=== PATIENT | male | born 2000 | race Caucasian/White ===

== ENCOUNTER 2019-08-28 13:05 | Emergency (ER) | payer SELFPAY ==
[2019-08-28 13:06] VITALS: BP 119/72; PULSE 68; RESP 18; TEMP 36.7; O2SAT 99; BMI 25.5
[2019-08-28 14:05] LABS: Bacteria 0 SEEN /hpf (None Seen); Mucous, Urine 0 SEEN /hpf (<or=2+); White Blood Cells 0 SEEN /hpf (0-5)
--- NOTE | 2019-08-28 14:05 | ED.VISSUMM ---
- ER Visit Summary Date of Service: 08/28/19 Chief Complaint: Abdominal pain History of Present Illness: The patient is a 18 M who presents with abdominal pain that is been getting worse over the past 3 days. Patient states the pain is worse over the lower abdomen. Patient describes it as aching. Patient states nothing makes it better or worse. Patient states initially he thought it was food poisoning and would go away. Patient admits to nausea and vomiting. Patient states his emesis is stomach contents. Patient admits to watery diarrhea yesterday. Patient denies any dysuria or hematuria. Physical Examination: Vital signs are stable. Patient is afebrile. Patient is in no acute distress. Oral mucosa is pink and moist. Neck is supple. Trachea is midline. There is no JVD. Heart was regular rate and rhythm. Lungs are clear and equal bilaterally. Abdomen is soft. Bowel sounds are normal. There is mild diffuse tenderness. There is no rebound or guarding noted. Cranial nerves II through XII are intact. There are no focal motor or sensory deficits noted. Extremities are intact. There is no calf tenderness or edema. Test Results: CBC and comprehensive metabolic profile were obtained and were essentially within normal limits. Urinalysis does not show any evidence of urinary tract infection. Emergency Department Course and Treatment: Patient was given IV fluids and Zofran here. Patient was feeling slightly better. Patient had no further episodes of vomiting. Patient was given a prescription for Zofran. Patient was instructed to start with a liquid diet and advance to a bland diet and then to a regular diet as he feels better. Patient was instructed to follow-up with his primary care physician in 5 to 7 days. Patient understood and was agreeable with this plan. All questions were answered. Disposition: Discharge home Impression: Nausea vomiting and diarrhea This note was generated with [employer] dictation software. It may contain incorrect words, spelling, and punctuation that were not noted in review of the chart prior to signing ED Disposition - Plan for ED Patient: Disposition: Home or Assisted Living Diagnosis: Nausea, vomiting, and diarrhea Instructions: ED Unknown Causes of Abdominal Pain Male, ED Vomiting and Diarrhea Nonspecific Adult Prescriptions: Ondansetron [Zofran Odt] 4 mg PO Q8H PRN PRN #10 tab PRN Reason: Nausea Prescription Printed Referrals: Shukri Baltazar DO [STAFF PHYSICIAN] - 5-7 Days
[2019-08-28 14:07] LABS: Color, Urine Straw (Yellow); Glucose, Dipstick Normal (Normal); Ketone-Dipstick Negative (Negative); Leukocyte Esterase-Dipstick Negative /ul (Negative); Nitrite-Dipstick Negative (Negative); Occult Blood-Urine Negative /ul (Negative); Protein-Dipstick Negative (Negative); Specific Gravity, Urine 1.015 (1.002-1.030); Urine Bilirubin Dipstick Negative (Negative); Urine Clarity Clear (Clear); Urine Urobilinogen Normal (Normal)
[2019-08-28] MEDS: 0.9% Normal Saline 1,000 ML 1000 ML IV (14:10)
[2019-08-28] MEDS: Ondansetron 4 MG/2 ML Vial IV (14:11)
[2019-08-28 14:13] LABS: Red Blood Cells-Urine 0-5 SEEN /hpf (0-5)
[2019-08-28 14:14] LABS: Squamous Epithelial Cells - UA 0-5 SEEN /hpf (0-5)
[2019-08-28 14:21] LABS: Absolute Lymphocyte Count 1.84 X10^3/uL (0.83-4.51); Absolute Neutrophil Count 3.2 X10^3/uL (2.0-7.7); Basophil# 0.02 X10^3/uL; Basophil% 0.3 % (0-1); Eosinophil# 0.08 X10^3/uL; Eosinophils% 1.4 % (0-5); Lymphocyte # 1.84 X10^3/ul (4.0); Lymphocyte % 31.9 % (19-41); Mean Corp Hgb Conc 33.3 g/dL (32-36); Mean Corpuscular Hgb 28.1 pg (27.0-32.0); Mean Corpuscular Volume 84.4 fL (80-94); Mean Platelet Vol. 9.8 fl (6.2-12.0); Monocyte% 10.4 % (0-10); NRBC Flagged by Analyzer 0 % (0-5); Neutrophil % 55.7 % (47-70); Platelet Count 282 K/mm3 (150-450); RBC Distribution Width CV 13.1 % (11.6-14.6); Red Blood Count 5.33 M/mm3 (4.6-6.2); White Blood Count 5.8 K/mm3 (4.4-11.0)
[2019-08-28 14:33] LABS: ALB/GLOB Ratio 1.4 RATIO (0.9-2.4); AST(SGOT) 16 U/L (15-37); Alanine Aminotransfer ALT/SGPT 23 U/L (16-61); Albumin, Serum 4.4 g/dL (3.2-5.0); Alkaline Phosphatase 62 U/L (45-117); Anion Gap 4 (5-15); BUN 8 mg/dL (7-18); BUN/Creat Ratio 7.8 RATIO (10-20); Calcium,Total 9.3 mg/dL (8.5-10.1); Chloride 107 mmol/L (98-107); Creatinine, Serum 1.02 mg/dL (0.70-1.30); EST Glomerular Filtration Rate 98 mL/min (>60); Est Glom Filt Rate - Afr Amer 119 mL/min (>60); Estimated Creatinine Clearance 138.07 ml/min; Globulin 3.2 g/dL (2.2-4.2); Glucose 90 mg/dL (74-106); Lipase 84 U/L (73-393); Potassium 3.8 mmol/L (3.5-5.1); Protein, Total 7.6 g/dL (6.4-8.2); Sodium Level 137 mmol/L (136-145)
[2019-08-28 15:47] VITALS: BP 132/97; RESP 18
== END 2019-08-28 15:50 | disposition home or self-care (01) ==
PROVIDERS: Emergency Provider Emergency Medicine
DX: R19.7 Diarrhea, unspecified (principal); R11.2 Nausea with vomiting, unspecified
CPT/HCPCS: 80053; 81001; 83690; 85025; 96361; 96374; 99283; J7030; A4216; J2405

== ENCOUNTER 2019-10-02 15:27 | Emergency (ER) | payer SELFPAY ==
[2019-10-02 15:28] VITALS: BP 125/85; PULSE 84; RESP 16; TEMP 36.5; O2SAT 98; BMI 21.4
--- NOTE | 2019-10-02 15:51 | ED.VISSUMM ---
- ER Visit Summary Date of Service: 10/02/19 Chief Complaint: Left foot injury History of Present Illness: The patient is a 19 M who presents with a left foot injury that occurred today. Patient states that he was walking down the steps this morning and stepped on a piece of broken glass. Patient states he thinks he got the glass out of the wound. Patient denies any paresthesias or weakness. Patient states the pain is dull. Patient states the pain is worse with ambulation. Patient states his last tetanus immunization was approximately 1 year ago. Physical Examination: Vital signs are stable. Patient is afebrile. Patient is in no acute distress. Skin is warm and dry. There is an approximately 4 mm linear laceration on the plantar aspect of the left foot over the fifth MTP joint. There is minimal gapping of the wound margins. There is no active bleeding noted. There are no foreign bodies visualized. There is no edema or erythema. There is no discharge or drainage. Sensation was intact to light touch in all digits. Capillary refill was less than 2 seconds in all digits. Test Results: X-rays of the left foot were ordered to rule out possible glass foreign body. Patient refused the x-rays and just wanted to be discharged. Emergency Department Course and Treatment: The wound was cleaned and dressed with a bacitracin dressing. Patient was instructed to keep the wound clean and dry. Patient was instructed to follow-up with his primary care physician in 5 to 7 days. Patient understood and was agreeable with the plan. All questions were answered. Disposition: Discharge home Impression: 1. Left foot laceration This note was generated with [employer] dictation software. It may contain incorrect words, spelling, and punctuation that were not noted in review of the chart prior to signing ED Disposition - Plan for ED Patient: Disposition: Home or Assisted Living Diagnosis: Laceration of left foot excluding toes Instructions: ED Laceration Small or Superficial Not Stitched Referrals: [facility] [GROUP OF PHYSICIANS] - 5-7 Days Job Montgomery MD [NON-STAFF] - 5-7 Days
--- NOTE | 2019-10-02 16:23 | CM.ED ---
Social Work Consult: No Primary Care Physician Informant: Self-Referral Met with patient and patient significant other, Clare in room. Introduced self and clinical social work therapist role. Patient agreeable to meeting with this clinical social work therapist and okay with speaking with Clare present. Clare and patient have been since April 2019. Patient currently works full-time through a [employer] and is hoping to be hired on full-time are current location of employment. Patient noted to not have any insurance. Patient state to have missed the enrollment period with insurance and that someone is helping me. Patient states hope to have insurance in the next few months. Patient confirming to not have a primary care physician and is voicing understanding as to importance of having a primary care doctor. Patient open to receiving list of primary care physicians for patient to set up appointment when patient has insurance as patient is reporting to be unable to afford private pay but to make too much to qualify for Medicaid. Clare also works full-time. Patient states to have history of Depression and denies any active mental health services. Patient denies thoughts/plans/intents of suicide. Patient agreeable to this clinical social work therapist providing patient with list of local mental health resources. Support and active listening provided. Patient states no concerns on returning to community. no further needs identified. Davide IGNACIO, ORLIN
[2019-10-02] MEDS: BACITRACIN 15 GM Tube 1 APPLIC TOPICAL (16:44)
== END 2019-10-02 16:45 | disposition home or self-care (01) ==
LOC: ED 16:00
PROVIDERS: Emergency Provider Emergency Medicine
DX: S91.312A Laceration without foreign body, left foot, initial encounter (principal); W25.XXXA Contact with sharp glass, initial encounter; Y93.01 Activity, walking, marching and hiking; Y92.9 Unspecified place or not applicable; Z72.0 Tobacco use
CPT/HCPCS: 99283

== ENCOUNTER 2019-10-15 20:24 | Emergency (ER) | payer SELFPAY ==
[2019-10-15 20:25] VITALS: BP 137/95; PULSE 98; RESP 14; TEMP 36.4; O2SAT 98; BMI 26.2
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
[2019-10-15] MEDS: Naproxen 500 MG Tablet PO (20:43)
[2019-10-15 20:49] LABS: Red Blood Cells-Urine 0 SEEN /hpf (0-5); Squamous Epithelial Cells - UA 0 SEEN /hpf (0-5)
[2019-10-15 21:04] LABS: Color, Urine Yellow (Yellow); Glucose, Dipstick Normal (Normal); Ketone-Dipstick 5 mg/dl (Negative); Leukocyte Esterase-Dipstick 25 /ul (Negative); Nitrite-Dipstick Negative (Negative); Occult Blood-Urine Negative /ul (Negative); Protein-Dipstick 30 mg/dl (Negative); Urine Bilirubin Dipstick Negative (Negative); Urine Clarity Clear (Clear); Urine Urobilinogen 1 mg/dl (Normal)
[2019-10-15 21:13] LABS: Bacteria RARE /hpf (None Seen); Mucous, Urine 1+ /hpf (<or=2+); White Blood Cells 0-5 SEEN /hpf (0-5)
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
[2019-10-15 22:02] VITALS: BP 119/74; PULSE 63; RESP 18; O2SAT 99
== END 2019-10-15 22:07 | disposition home or self-care (01) ==
PROVIDERS: Emergency Provider Emergency Medicine
DX: N50.812 Left testicular pain (principal); Y09 Assault by unspecified means; N43.3 Hydrocele, unspecified; I86.1 Scrotal varices; F17.200 Nicotine dependence, unspecified, uncomplicated
CPT/HCPCS: 76870; 81001; 93976; 99283

== ENCOUNTER 2019-12-28 01:33 | Emergency (ER) | payer SELFPAY ==
[2019-12-28 01:33] VITALS: BP 127/94; PULSE 95; RESP 16; TEMP 36.8; O2SAT 98; BMI 23.5
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
[2019-12-28 03:00] VITALS: RESP 16
--- NOTE | 2019-12-28 03:20 | RAD_ITS ---
STUDY: X-RAY CHEST REASON FOR EXAM: Male, 19 years old. MENTAL HEALTH CLEARANCE TECHNIQUE: Single AP portable view of the chest. COMPARISON: Prior comparison studies are not available for review at this time. FINDINGS: The lungs are clear and expanded. There is no demonstrated pleural abnormality. Normal size heart. Normal mediastinum and ping. Normal visualized pulmonary arteries. Normal visualized aortic arch and descending thoracic aorta. Normal visualized thoracic spine. Normal visualized ribs, clavicles, and shoulders. There is no demonstrated abnormality of the visualized soft tissue structures of the upper abdomen. RAD/Chest 1 View (Portable) IMPRESSION: No radiographic evidence of acute cardiopulmonary disease. Electronically Signed: Deysi Bates MD at 3:47 EST , Service support ,
[2019-12-28 03:22] LABS: Red Blood Cells-Urine 0 SEEN /hpf (0-5); Squamous Epithelial Cells - UA 0 SEEN /hpf (0-5)
[2019-12-28 03:23] LABS: Absolute Lymphocyte Count 1.57 X10^3/uL (0.83-4.51); Absolute Neutrophil Count 7.7 X10^3/uL (2.0-7.7); Basophil# 0.04 X10^3/uL; Basophil% 0.4 % (0-1); Eosinophil# 0.06 X10^3/uL; Eosinophils% 0.6 % (0-5); Hematocrit 43.7 % (40-54); Hemoglobin 14.6 g/dL (13.0-16.5); Lymphocyte # 1.57 X10^3/ul (4.0); Lymphocyte % 15.4 % (19-41); Mean Corp Hgb Conc 33.4 g/dL (32-36); Mean Corpuscular Volume 86.7 fL (80-94); Mean Platelet Vol. 10.2 fl (6.2-12.0); Monocyte% 7.8 % (0-10); NRBC Flagged by Analyzer 0 % (0-5); Neutrophil # 7.71 X10^3/uL (2.7-7.7); Neutrophil % 75.5 % (47-70); Platelet Count 289 K/mm3 (150-450); RBC Distribution Width CV 12.9 % (11.6-14.6); RBC Distribution Width SD 40.6 fl (35.1-43.9); Red Blood Count 5.04 M/mm3 (4.6-6.2); White Blood Count 10.2 K/mm3 (4.4-11.0)
[2019-12-28 03:40] LABS: Amphetamine Urine VISTA NEGATIVE (<1000 ng/mL); Barbiturate Urine VISTA NEGATIVE (< 200 ng/mL); Benzodiazepine Urine VISTA NEGATIVE (< 200 ng/mL); Cocaine Urine VISTA NEGATIVE (< 300 ng/mL); Ecstacy Urine VISTA NEGATIVE (< 500 ng/mL); Methadone Urine VISTA NEGATIVE (< 300 ng/mL); PCP Urine VISTA NEGATIVE (< 25 ng/mL); THC Urine VISTA POSITIVE (< 50 ng/mL); Vista UDS pH Range 6
[2019-12-28 04:10] VITALS: RESP 18
[2019-12-28 04:11] LABS: Color, Urine Yellow (Yellow); Glucose, Dipstick Normal (Normal); Ketone-Dipstick 5 mg/dl (Negative); Leukocyte Esterase-Dipstick 25 /ul (Negative); Nitrite-Dipstick Negative (Negative); Occult Blood-Urine Negative /ul (Negative); Protein-Dipstick 100 mg/dl (Negative); Specific Gravity, Urine 1.025 (1.002-1.030); Urine Bilirubin Dipstick Negative (Negative); Urine Clarity Clear (Clear); Urine Urobilinogen 1 mg/dl (Normal)
[2019-12-28 04:41] LABS: Calcium Oxalate Crystals Ur 1+ /hpf (<or=2+)
[2019-12-28 04:42] LABS: Bacteria 1+ /hpf (None Seen); Hyaline Cast 0-5 SEEN /lpf (0-5); Mucous, Urine 3+ /hpf (<or=2+); White Blood Cells 0-5 SEEN /hpf (0-5)
[2019-12-28 04:49] LABS: ALB/GLOB Ratio 1.4 RATIO (0.9-2.4); AST(SGOT) 11 U/L (15-37); Alanine Aminotransfer ALT/SGPT 23 U/L (16-61); Albumin, Serum 4.6 g/dL (3.2-5.0); Alkaline Phosphatase 64 U/L (45-117); Anion Gap 4 (5-15); BUN 10 mg/dL (7-18); Chloride 103 mmol/L (98-107); EST Glomerular Filtration Rate 100 mL/min (>60); Est Glom Filt Rate - Afr Amer 121 mL/min (>60); Estimated Creatinine Clearance 139.66 ml/min; Globulin 3.2 g/dL (2.2-4.2); Glucose 94 mg/dL (74-106); Potassium 3.6 mmol/L (3.5-5.1); Protein, Total 7.8 g/dL (6.4-8.2); Sodium Level 137 mmol/L (136-145)
[2019-12-28 05:07] VITALS: RESP 18
[2019-12-28 05:15] LABS: Probe Check PASS; Specimen Processing Control PASS
[2019-12-28 06:50] VITALS: BP 124/67; PULSE 72; RESP 16; O2SAT 96
== END 2019-12-28 06:51 | disposition home or self-care (01) ==
PROVIDERS: Emergency Provider Student in an Organized Health Care Education/Training Program
DX: F32.9 Major depressive disorder, single episode, unspecified (principal); F41.9 Anxiety disorder, unspecified; Z79.899 Other long term (current) drug therapy; F17.200 Nicotine dependence, unspecified, uncomplicated
CPT/HCPCS: 71045; 80053; 80307; 80320; 81001; 85025; 87635; 99282; G0480; U0002

== ENCOUNTER 2022-02-15 17:22 | Emergency (ER) | payer SELFPAY ==
[2022-02-15 17:22] VITALS: BP 151/82; PULSE 78; RESP 16; TEMP 36.8; O2SAT 97; BMI 31.5
--- NOTE | 2022-02-15 17:47 | EDS_ITS ---
HPI History of Present Illness Chief Complaint: General Illness Informant: patient Onset/Context/Timing Onset: Weeks (2) Context: Gradual Onset Timing: Continuous Quality: Lightheaded Location: Generalized Worsened by: Standing Relieved by: Nothing Narrative Narrative: Patient presents with dizziness, headache, cough, sore throat, and rhinorrhea for the past 2 weeks. Patient states he feels lightheaded. Patient states this is worse with standing. Patient states he feels like he is going to pass out whenever he stands up. Patient states nothing seems to help with it. Patient admits to some nausea and vomiting. Patient admits to body aches and muscle aches. Patient denies any chest pain. Patient denies any palpitations. Patient states he has been around a neighbor who was recently diagnosed with COVID and other coworkers who were recently diagnosed with influenza. PFSH PFSH Medical History no medical history Home Medications ondansetron 4 mg disintegrating tablet 4 mg PO Q8H PRN PRN Nausea #10 tabs 02/15/22 [Rx Last Taken Unknown] Allergy/AdvReac Type Severity Reaction Status Date / Time No Known Allergies Allergy Verified 02/15/22 17:25 Family History no significant family his Surgical History no surgical history Social History Smoking Status: Never smoker ROS ROS ED Constitutional Constitutional ED: Reports chills and subjective; Denies fever(s) Eyes Eyes: Denies blurry vision or change in vision ENT ENT ED: Reports rhinorrhea and sore throat Cardiovascular Cardiovascular: Denies chest pain or palpitations Respiratory/Chest Respiratory/Chest: Reports cough and dyspnea Gastrointestinal Gastrointestinal: Reports nausea and vomiting Genitourinary Genitourinary ED: Denies dysuria or hematuria Musculoskeletal Musculoskeletal: Reports arthralgias and myalgias Integumentary Denies abscess or rash Neurologic Neurologic: Reports headache(s); Denies weakness Allergic/Immunologic Allergic/Immunologic ED: Denies mouth swelling or urticaria EXAM Physical Exam Const Vital Signs: 02/15/22 17:22 02/15/22 18:02 Temperature 98.2 F Temperature Source Temporal Pulse Rate 78 Pulse Rate [Lying] 64 Pulse Rate [Sitting (for 1 minute prior to obtaining)] 58 L Respiratory Rate 16 Blood Pressure 151/82 H Blood Pressure [Lying] 130/66 H Blood Pressure [Sitting (for 1 minute prior to obtaining)] 127/90 H Blood Pressure [Standing (for 1 minute prior to obtaining)] 129/87 H Blood Pressure Mean 105 Blood Pressure Mean [Lying] 87 Blood Pressure Mean [Sitting (for 1 minute prior to obtaining)] 102 Blood Pressure Mean [Standing (for 1 minute prior to obtaining)] 101 Pulse Ox 97 Oxygen Delivery Method Room Air Positive well nourished and well developed General Appearance ED: well developed and NAD HEENT Reports moist mucous membranes Neck supple and no JVD Resp normal respiratory effort and clear to auscultation bilaterally Cardio regular rate, regular rhythm and no murmurs GI normal to inspection, nondistended, normoactive bowel sounds and non-tender Palpation: soft Extremity normal to inspection General Extremety ED: Negative for edema or tenderness General Extremity: Negative for edema Neuro oriented x3, CN's II-XII intact bilaterally and no sensory deficits noted Sensorium / Orientation: alert Motor Exam: strength 5/5 throughout Psych mental status grossly normal Skin no rashes or lesions noted MDM MDM MDM Narrative Medical decision making narrative: Patient was given IV fluids. Orthostatic vital signs were obtained and were negative. CBC was obtained and was reviewed. There is a mild leukocytosis of 11.3. Comprehensive metabolic profile was also obtained and was reviewed. Chloride was slightly elevated at 109 the remainder was within normal limits. COVID 19 rapid antigen was obtained and was negative. Influenza A and influenza B rapid antigens were obtained and were negative. Portable 1 view chest x-ray was obtained. On my interpretation, lung cantu are clear. There is normal cardiac silhouette. Bony thorax is normal. There is no acute process noted. Radiologist also interpreted the x-ray and agrees. Patient was advised of his findings. Patient was advised that this is most likely a viral illness. Patient was instructed drink plenty of fluids. Patient was instructed to take Tylenol or ibuprofen as needed for any aches or fevers. Patient was given a note for work. Patient was instructed to follow-up with his primary care physician in 5 to 7 days. Patient understood and was agreeable with the plan. All questions were answered. Lab Data Attestation: I reviewed the patient's lab results. Labs: Laboratory Results - last 24 hr 02/15/22 02/15/22 17:35 17:35 WBC 11.3 H RBC 5.32 Hgb 14.9 Hct 45.2 MCV 85.0 MCH 28.0 MCHC 33.0 RDW Std Deviation 39.3 RDW Coeff of Greer 12.7 Plt Count 322 MPV 9.4 Immature Gran % (Auto) 0.400 Neut % (Auto) 74.9 H Lymph % (Auto) 17.8 L [place] % (Auto) 5.8 Eos % (Auto) 0.8 Baso % (Auto) 0.3 Absolute Neuts (auto) 8.5 H Absolute Lymphs (auto) 2.02 Nucleated RBC % 0 Sodium 139 Potassium 3.9 Chloride 109 H Carbon Dioxide 25.0 Anion Gap 5 BUN 9 Creatinine 0.84 Estim Creat Clear Calc 163.47 Est GFR (MDRD) Af Amer 145 Est GFR (MDRD) Non-Af 120 BUN/Creatinine Ratio 10.7 Glucose 103 Calcium 8.8 Total Bilirubin 0.50 AST 16 ALT 35 Alkaline Phosphatase 66 Total Protein 7.5 Albumin 4.0 Globulin 3.5 Albumin/Globulin Ratio 1.1 Radiography Chest X-Ray - ED: 1 View, Read by ED Physician, Read by Radiologist, Normal and No Acute Disease Diagnostic Testing: Clinical Impression(s) from Imaging Studies Chest X-Ray 02/15/22 18:07 IMPRESSION: No acute cardiopulmonary disease or major interval change. Electronically Signed: Leonard Salguero DO at 18:21 EST Reading Location ID and State: [address] [place] [address] Tel [phone], Service support , Discharge Plan Triage Chief Complaint: General Illness ED Provider: Gian Echavarria Dx/Rx/DC Orders Clinical Impression: Viral illness, Nausea and vomiting Instructions: ED Viral Syndrome (Adult) Prescriptions: New ondansetron [ondansetron] 4 MG tablet 4 mg PO Q8H PRN PRN (Reason: Nausea) Qty: 10 0RF Stand Alone Forms: ED Work / School Excuse Primary Care Provider: Care Physician,No Primary Referrals: Gian Carballo MD [Med Staff - Convention Worker] - 5-7 Days Care Physician,No Primary [Primary Care Provider] - Disposition Disposition: Home, Self Care
[2022-02-15] MEDS: 0.9% Normal Saline 1,000 ML 1000 ML IV (18:00)
[2022-02-15] MEDS: Ondansetron 4 MG/2 ML Vial IV (18:00)
[2022-02-15 18:02] VITALS: BP 127/90; BP 129/87; BP 130/66; PULSE 58; PULSE 64
--- NOTE | 2022-02-15 18:07 | RAD_ITS ---
STUDY: X-RAY CHEST REASON FOR EXAM: Male, 21 years old. Cough. TECHNIQUE: Single AP portable view of the chest. COMPARISON: December 28, 2019. FINDINGS: The lungs are clear and expanded. There is no demonstrated pleural abnormality. Normal size heart. Normal mediastinum and ping. Normal visualized pulmonary arteries. Normal visualized aortic arch and descending thoracic aorta. Normal visualized thoracic spine. Normal visualized ribs, clavicles, and shoulders. There is no demonstrated abnormality of the visualized soft tissue structures of the upper abdomen. RAD/Chest 1 View (Portable) IMPRESSION: No acute cardiopulmonary disease or major interval change. Electronically Signed: Leonard Salguero DO at 18:21 [facility] ,
[2022-02-15 18:08] LABS: Absolute Lymphocyte Count 2.02 X10^3/uL (0.83-4.51); Absolute Neutrophil Count 8.5 X10^3/uL (2.0-7.7); Basophil# 0.03 X10^3/uL; Basophil% 0.3 % (0-1); Eosinophil# 0.09 X10^3/uL; Eosinophils% 0.8 % (0-5); Hematocrit 45.2 % (40-54); Hemoglobin 14.9 g/dL (13.0-16.5); Lymphocyte # 2.02 X10^3/ul (0.83-4.51); Lymphocyte % 17.8 % (19-41); Mean Platelet Vol. 9.4 fl (6.2-12.0); Monocyte# 0.66 X10^3/uL; Monocyte% 5.8 % (0-10); NRBC Flagged by Analyzer 0 % (0-5); Neutrophil # 8.49 X10^3/uL (2.7-7.7); Neutrophil % 74.9 % (47-70); Platelet Count 322 K/mm3 (150-450); RBC Distribution Width CV 12.7 % (11.6-14.6); RBC Distribution Width SD 39.3 fl (35.1-43.9); Red Blood Count 5.32 M/mm3 (4.6-6.2); White Blood Count 11.3 K/mm3 (4.4-11.0)
[2022-02-15 18:24] LABS: ALB/GLOB Ratio 1.1 RATIO (0.9-2.4); AST(SGOT) 16 U/L (15-37); Alanine Aminotransfer ALT/SGPT 35 U/L (16-61); Alkaline Phosphatase 66 U/L (45-117); Anion Gap 5 (5-15); BUN 9 mg/dL (7-18); BUN/Creat Ratio 10.7 RATIO (10-20); Calcium,Total 8.8 mg/dL (8.5-10.1); Chloride 109 mmol/L (98-107); Creatinine, Serum 0.84 mg/dL (0.70-1.30); EST Glomerular Filtration Rate 120 mL/min (>60); Est Glom Filt Rate - Afr Amer 145 mL/min (>60); Estimated Creatinine Clearance 163.47 ml/min; Globulin 3.5 g/dL (2.2-4.2); Glucose 103 mg/dL (74-106); Potassium 3.9 mmol/L (3.5-5.1); Protein, Total 7.5 g/dL (6.4-8.2); Sodium Level 139 mmol/L (136-145)
[2022-02-15 19:26] VITALS: BP 131/92; PULSE 72; RESP 22; O2SAT 100
== END 2022-02-15 19:26 | disposition home or self-care (01) ==
PROVIDERS: Emergency Provider Emergency Medicine; Visit Provider Emergency Medicine
DX: B34.9 Viral infection, unspecified (principal); R11.2 Nausea with vomiting, unspecified; M79.10 Myalgia, unspecified site; R51.9 Headache, unspecified; Z20.822 Contact with and (suspected) exposure to COVID-19
CPT/HCPCS: 71045; 80053; 85025; 87428; 96361; 96374; 99284; J7030; A4216; J2405

== ENCOUNTER 2022-02-23 12:01 | Emergency (ER) | payer SELFPAY ==
[2022-02-23 12:01] VITALS: BP 132/89; PULSE 89; RESP 16; TEMP 36.6; O2SAT 99; BMI 31.2
--- NOTE | 2022-02-23 14:05 | CT_ITS ---
STUDY: CT BRAIN WITHOUT CONTRAST REASON FOR EXAM: Male, 21 years old. Dizziness RADIATION DOSAGE (If Supplied By Facility): CTDIvol = ( 47.06 ) mGy, DLP = ( 872.68 ) mGycm TECHNIQUE: Transaxial CT imaging of the brain was performed without administration of intravenous contrast material. Individualized dose optimization techniques were used for this CT. COMPARISON: No relevant priors. FINDINGS: Normal soft tissue structures. Normal calvarium. Normal size ventricles and extra-axial spaces for the patient''s age. Normal white matter tracts of the cerebral hemispheres. Normal basal ganglia and thalami. Normal brainstem. Normal cerebellum. There is no intracranial hemorrhage. There are no findings of an acute ischemic infarction. Mild degree of mucosal thickening along the posterior aspect of the ethmoid sinuses bilaterally. CT/Brain/Head without Contrast IMPRESSION: Normal unenhanced CT scan of the brain. Mild degree of mucosal thickening along the posterior aspect of the ethmoid sinuses bilaterally. Electronically Signed: Bernard Echevarria MD at 14:44 EST ,
[2022-02-23] MEDS: diazePAM 5 MG Tablet 2.5 MG PO (14:15)
[2022-02-23] MEDS: 0.9% Normal Saline 1,000 ML 1000 ML IV (14:15)
[2022-02-23 14:21] LABS: Absolute Lymphocyte Count 1.62 X10^3/uL (0.83-4.51); Absolute Neutrophil Count 4.2 X10^3/uL (2.0-7.7); Basophil# 0.03 X10^3/uL; Basophil% 0.5 % (0-1); Eosinophil# 0.15 X10^3/uL; Eosinophils% 2.3 % (0-5); Hematocrit 45.9 % (40-54); Hemoglobin 15.4 g/dL (13.0-16.5); Lymphocyte # 1.62 X10^3/ul (0.83-4.51); Mean Corp Hgb Conc 33.6 g/dL (32-36); Mean Corpuscular Hgb 28.4 pg (27.0-32.0); Mean Corpuscular Volume 84.7 fL (80-94); Mean Platelet Vol. 9.5 fl (6.2-12.0); Monocyte% 7.7 % (0-10); NRBC Flagged by Analyzer 0 % (0-5); Neutrophil # 4.16 X10^3/uL (2.7-7.7); Neutrophil % 64.2 % (47-70); Platelet Count 318 K/mm3 (150-450); RBC Distribution Width CV 12.7 % (11.6-14.6); RBC Distribution Width SD 39.2 fl (35.1-43.9); Red Blood Count 5.42 M/mm3 (4.6-6.2); White Blood Count 6.5 K/mm3 (4.4-11.0)
[2022-02-23 14:38] LABS: ALB/GLOB Ratio 1.1 RATIO (0.9-2.4); AST(SGOT) 15 U/L (15-37); Alanine Aminotransfer ALT/SGPT 36 U/L (16-61); Albumin, Serum 4.1 g/dL (3.2-5.0); Alkaline Phosphatase 64 U/L (45-117); Anion Gap 7 (5-15); BUN 10 mg/dL (7-18); BUN/Creat Ratio 11.6 RATIO (10-20); Calcium,Total 9.4 mg/dL (8.5-10.1); Chloride 103 mmol/L (98-107); Creatinine, Serum 0.86 mg/dL (0.70-1.30); EST Glomerular Filtration Rate 117 mL/min (>60); Est Glom Filt Rate - Afr Amer 141 mL/min (>60); Estimated Creatinine Clearance 159.67 ml/min; Globulin 3.6 g/dL (2.2-4.2); Glucose 92 mg/dL (74-106); Potassium 4.1 mmol/L (3.5-5.1); Protein, Total 7.7 g/dL (6.4-8.2); Sodium Level 138 mmol/L (136-145)
--- NOTE | 2022-02-23 15:00 | EDS_ITS ---
HPI History of Present Illness Chief Complaint: General Illness Informant: patient Onset/Context/Timing Onset: Weeks (2) Context: Gradual Onset Timing: Continuous Quality: Off balance Location: Generalized Worsened by: Nothing Relieved by: Nothing Narrative Narrative: Patient presents with shortness of breath and dizziness that has been constant for the past 2 weeks. Patient was seen here 1 week ago and had lab work and x- rays done at that time. Patient had IV fluids and was feeling somewhat better. Patient states his symptoms began after he was discharged. Patient states they have been constant. Patient states he feels off balance like he just got off of a roller coaster. Patient states his symptoms are generalized. Patient states nothing makes it worse and nothing makes it better. Patient admits to some subjective fevers and chills. Patient also admits to some blurred vision. Patient admits to some tinnitus. Patient denies any hearing loss however. Patient admits to some shortness of breath and cough with some sputum production. PFSH PFSH Home Medications ondansetron 4 mg disintegrating tablet 4 mg PO Q8H PRN PRN Nausea #10 tabs 02/15/22 [Rx Last Taken Unknown] diazepam 10 mg tablet (Valium) 10 mg PO TID PRN dizziness or vertigo #14 tabs 02/23/22 [Rx Last Taken Unknown] promethazine 25 mg tablet 25 mg PO Q6H PRN PRN Nausea #10 TABLETS 02/23/22 [Rx Last Taken Unknown] Allergy/AdvReac Type Severity Reaction Status Date / Time No Known Allergies Allergy Verified 02/23/22 12:03 Social History Smoking Status: Never smoker ROS ROS ED Constitutional Constitutional ED: Reports chills, fever(s) and subjective Eyes Eyes: Reports blurry vision; Denies diplopia ENT ENT ED: Denies ear pain, rhinorrhea or sore throat Cardiovascular Cardiovascular: Denies chest pain or palpitations Respiratory/Chest Respiratory/Chest: Reports cough, dyspnea and sputum Gastrointestinal Gastrointestinal: Denies nausea or vomiting Genitourinary Genitourinary ED: Denies dysuria or hematuria Musculoskeletal Musculoskeletal: Reports back pain and neck pain Integumentary Denies abscess or rash Neurologic Neurologic: Reports headache(s); Denies weakness Allergic/Immunologic Allergic/Immunologic ED: Denies mouth swelling or urticaria EXAM Physical Exam Const Vital Signs: 02/23/22 12:01 02/23/22 14:08 Temperature 98 F Temperature Source Temporal Pulse Rate 89 Respiratory Rate 16 Respiratory Pattern Normal Blood Pressure 132/89 H Blood Pressure Mean 103 Pulse Ox 99 Oxygen Delivery Method Room Air Positive well nourished and well developed General Appearance ED: well developed HEENT Reports moist mucous membranes Neck supple and no JVD Resp normal respiratory effort and clear to auscultation bilaterally Cardio regular rate, regular rhythm and no murmurs GI normal to inspection, nondistended, normoactive bowel sounds and non-tender Palpation: soft Extremity normal to inspection General Extremety ED: Negative for edema or tenderness General Extremity: Negative for edema Neuro oriented x3, CN's II-XII intact bilaterally and no sensory deficits noted Sensorium / Orientation: alert Motor Exam: strength 5/5 throughout Psych mental status grossly normal Skin no rashes or lesions noted MDM MDM MDM Narrative Medical decision making narrative: Patient was given IV fluids. Patient was given a dose of oral Valium here. Differential diagnosis includes labyrinthitis due to viral upper respiratory infection, viral illness, vertigo, cerebellar infarct or bleed, anemia, and pneumonia. CBC was obtained and was reviewed. This was within normal limits. Comprehensive metabolic profile was obtained and was reviewed. This was all within normal limits. CT scan of the brain was obtained. There is no acute intracranial abnormality. This was interpreted by the radiologist. This was independently reviewed by myself as well. Patient was still having some vertigo type symptoms. Patient was given a dose of meclizine here. Patient was allowed to rest. Patient was having difficulty walking to the bathroom and needed help from his to keep him steady. Patient states that whenever he closes his eyes he still feels like the room is spinning. Patient was given a repeat dose of meclizine here. Patient still feels dizzy but he feels like he is starting to get better. Patient feels unsure if he is able to go home and ambulate without difficulty. states patient has fallen multiple times over the last week and states he is still felt unsteady on his feet. Because of this, I will talk to the hospitalist for observation admission for intractable vertigo. Spouse present and evaluated the patient. Hospitalist states patient is going to go home with Valium and Phenergan. Patient was given prescriptions for these medications. Patient was also given a note for work for today, tomorrow, and Monday. Patient was instructed to drink plenty of fluids. Patient was instructed return if worse in any way. Patient understood and was agreeable with the plan. All questions were answered. Lab Data Attestation: I reviewed the patient's lab results. Labs: Laboratory Results - last 24 hr 02/23/22 02/23/22 13:35 13:35 WBC 6.5 RBC 5.42 Hgb 15.4 Hct 45.9 MCV 84.7 MCH 28.4 MCHC 33.6 RDW Std Deviation 39.2 RDW Coeff of Greer 12.7 Plt Count 318 MPV 9.5 Immature Gran % (Auto) 0.300 Neut % (Auto) 64.2 Lymph % (Auto) 25.0 [place] % (Auto) 7.7 Eos % (Auto) 2.3 Baso % (Auto) 0.5 Absolute Neuts (auto) 4.2 Absolute Lymphs (auto) 1.62 Nucleated RBC % 0 Sodium 138 Potassium 4.1 Chloride 103 Carbon Dioxide 28.0 Anion Gap 7 BUN 10 Creatinine 0.86 Estim Creat Clear Calc 159.67 Est GFR (MDRD) Af Amer 141 Est GFR (MDRD) Non-Af 117 BUN/Creatinine Ratio 11.6 Glucose 92 Calcium 9.4 Total Bilirubin 0.70 AST 15 ALT 36 Alkaline Phosphatase 64 Total Protein 7.7 Albumin 4.1 Globulin 3.6 Albumin/Globulin Ratio 1.1 Radiography Diagnostic Testing: Clinical Impression(s) from Imaging Studies Brain CT 02/23/22 14:05 IMPRESSION: Normal unenhanced CT scan of the brain. Mild degree of mucosal thickening along the posterior aspect of the ethmoid sinuses bilaterally. Electronically Signed: Bernard Echevarria MD at 14:44 EST , Chest X-Ray 02/23/22 15:05 IMPRESSION: Normal x-ray examination of the chest. Electronically Signed: Bernard Echevarria MD at 15:24 EST , Discharge Plan Triage Chief Complaint: General Illness ED Provider: Gian Echavarria Dx/Rx/DC Orders Clinical Impression: Vertigo, Elevated blood pressure reading Instructions: ED Vertigo, Unspecified Prescriptions: New diazepam [Valium] 10 mg tablet 10 mg PO TID PRN (Reason: dizziness or vertigo) Qty: 14 0RF promethazine [promethazine] 25 mg tablet 25 mg PO Q6H PRN PRN (Reason: Nausea) Qty: 10 0RF No Action ondansetron [ondansetron] 4 MG tablet 4 mg PO Q8H PRN PRN (Reason: Nausea) Qty: 10 0RF Stand Alone Forms: ED Work / School Excuse Primary Care Provider: Care Physician,No Primary Referrals: Care Physician,No Primary [Primary Care Provider] - Disposition Disposition: Home, Self Care
--- NOTE | 2022-02-23 15:05 | RAD_ITS ---
STUDY: X-RAY CHEST REASON FOR EXAM: Male, 21 years old. Cough TECHNIQUE: PA and lateral views of the chest. COMPARISON: Comparison is made with prior study dated 02/15/2022. FINDINGS: EKG electrodes are seen. The lungs are clear and expanded. There is no demonstrated pleural abnormality. Normal size heart. Normal mediastinum and ping. Normal visualized pulmonary arteries. Normal visualized aortic arch and descending thoracic aorta. Normal visualized thoracic spine. Normal visualized ribs, clavicles, and shoulders. There is no demonstrated abnormality of the visualized soft tissue structures of the upper abdomen. RAD/Chest PA and Lateral IMPRESSION: Normal x-ray examination of the chest. Electronically Signed: Bernard Echevarria MD at 15:24 EST ,
[2022-02-23] MEDS: Meclizine HCl 25 MG Tablet PO ×2 (15:51→16:59)
== END 2022-02-23 17:42 | disposition home or self-care (01) ==
PROVIDERS: Emergency Provider Emergency Medicine; Visit Provider Emergency Medicine
DX: R42 Dizziness and giddiness (principal); R03.0 Elevated blood-pressure reading, without diagnosis of hypertension
CPT/HCPCS: 70450; 71046; 80053; 85025; 96360; 99285; J7030; A4216

== ENCOUNTER 2025-01-15 21:11 | Emergency (ER) | payer MEDICAID, SELFPAY ==
[2025-01-15 21:11] VITALS: BP 124/74; PULSE 90; RESP 16; TEMP 36.6; O2SAT 99
[2025-01-15 22:54] VITALS: BMI 30.6
--- NOTE | 2025-01-15 23:05 | ED.VIS.LOWEX ---
HPI History of Present Illness HPI Narrative: Patient presents with injury to his right great toe that occurred tonight. Patient states that he was trying to replace the door to his freezer when it fell and landed on his toe. Patient describes the pain as sharp and aching. Patient states it is worse with any pressure. Patient states it is better with elevation. Patient admits to some tingling to his toe. Patient denies any weakness. Patient states his last tetanus was 6 years ago. Patient denies any other injuries. Chief Complaint: Lower Extremity Injury Informant: patient Occured/Mechanism Mechanism/Context: Yes direct blow Onset/Context/Timing Onset: Today Context: Sudden Onset Timing: Continuous Quality of Pain: Sharp and Aching Location: Right great toe Worsened by: Pressure Relieved by: Elevation Associated Symptoms Associated Symptoms: Positive for Parasthesia; Negative for Weakness or Loss of Funtion Narrative Tetanus Immunization: 5-10 years [facility] Medical History (Updated 01/16/25 @ 00:[address] Gian Echavarria DO) Depression Anxiety Hx of fracture of leg Home Medications ?Medication ?Instructions ?Recorded ?Last Taken ?Type NK 01/15/25 Unknown History Allergy/AdvReac Type Severity Reaction Status Date / Time No Known Allergies Allergy Verified 01/15/25 21:12 Surgical History (Updated 01/16/25 @ 00:[address] Gian Echavarria DO) S/P ORIF (open reduction internal fixation) fracture Social History Smoking Status: Never smoker ROS ROS ED Constitutional Constitutional ED: Denies chills or fever(s) Eyes Eyes: Denies blurry vision or change in vision ENT ENT ED: Denies rhinorrhea or sore throat Cardiovascular Cardiovascular: Denies chest pain or palpitations Respiratory/Chest Respiratory/Chest: Denies cough or dyspnea Gastrointestinal Gastrointestinal: Reports nausea; Denies vomiting Genitourinary Genitourinary ED: Denies dysuria or hematuria Musculoskeletal Musculoskeletal: Denies back pain or neck pain Integumentary Denies abscess or rash Neurologic Neurologic: Denies headache(s) or weakness Allergic/Immunologic Allergic/Immunologic ED: Denies mouth swelling or urticaria EXAM Physical Exam Const Vital Signs: 01/15/25 21:11 Temperature 98 F Temperature Source Oral Pulse Rate 90 Respiratory Rate 16 Blood Pressure 124/74 H Blood Pressure Mean 90 Pulse Ox 99 Oxygen Delivery Method Room Air Positive well nourished and well developed Constitutional Narrative: BMI is 30.6. General Appearance ED: well developed and NAD HEENT Reports moist mucous membranes Neck full ROM and supple Extremity Extremity Narrative: There is tenderness of the distal phalanx of the right great toe. There is some mild edema. There is some dried blood along the nail margin. There is no active bleeding noted. Sensation was intact to light touch in all digits. Capillary refill was less than 2 seconds in all digits. Range of motion was limited in all motions of the IP and MP joints of the right great toe secondary to pain. Neuro oriented x3, CN's II-XII intact bilaterally, moves all extremities and no sensory deficits noted Sensorium / Orientation: alert Motor Exam: strength 5/5 throughout Psych mental status grossly normal MDM MDM MDM Narrative Medical decision making narrative: Differential diagnosis includes fracture, sprain, contusion, and laceration. X-rays of the right foot will be obtained to assess for fracture. Radiography Diagnostic Testing: Clinical Impression(s) from Imaging Studies Foot X-Ray 01/15/25 23:12 IMPRESSION: No acute osseous abnormalities. Mild osteoarthrosis. Reading Location: [facility] X-rays of the right foot were obtained. There are 3 views. On my independent interpretation, there is no acute fracture. There is mild soft tissue swelling noted. Radiologist also interpreted the x-rays and agrees. Treatment and Re-Evaluation Narrative: Patient was given a dose of Line [place] here. The wound was cleaned. There is a superficial flap laceration along the medial aspect of the distal phalanx of the right great toe along the nail margin. There is minimal gapping of the wound margins. There does not appear to be amenable to sutures at this time. Bacitracin dressing was applied. Patient was given a postop shoe. Patient was instructed to ice and elevate the right foot. Patient was instructed to take Tylenol or ibuprofen as needed for pain. Patient understood and was agreeable with the plan. All questions were answered. Discharge Plan Triage Chief Complaint: Lower Extremity Injury ED Provider: Gian Echavarria Dx/Rx/DC Orders Clinical Impression: Contusion of great toe of right foot, Elevated blood pressure reading Instructions: ED Crush Injury, Foot/Toe, ED Finger or Toe Contusion Prescriptions: No Action NK Stand Alone Forms: ED Work / School Excuse Primary Care Provider: Care Physician,No Primary Referrals: Care Physician,No Primary [Primary Care Provider, Medical] Print Language: Chinese Disposition Disposition: Home, Self Care
[2025-01-15] MEDS: HYDROcodone Bitartrate/Apap 5/325 Tablet PO (23:08)
--- NOTE | 2025-01-15 23:12 | RAD_ITS ---
PROCEDURE: FOOT MIN 3 VIEWS 01/15/2025 REASON FOR EXAM: INJURY/PAIN TECHNIQUE: Procedure Code: RADFO Modality: DX Procedure: FOOT MIN 3 VIEWS Laterality: FINDINGS: No evidence of acute fracture or dislocation. Mild degenerative changes throughout the foot. Small calcaneal enthesophytes. The soft tissues are unremarkable. RAD/Foot min 3 Views IMPRESSION: No acute osseous abnormalities. Mild osteoarthrosis. Reading Location: [facility]
--- OUTSIDE RECORDS SUMMARY | 2025-01-15 23:39 | XMS RPT_ITS | CCD ---
Author Organization [facility] Inform ion Partnership [facility] Care Team Providers Care Classroom Coordinator Name Role Phone SYL ORTIZ, CECILIA Zapata Attending Unavailable HIRA ORTIZ, BRANDT Mtz Attending Unavail able SHAW BROOKS DO Attending Unavailable Care Physician, No Primary Primary Care Provider Unavailable Care Physician, No Primary Referring Provider Un available Jesus Soliman Attending Provider [phone] Care Physician, No Primary Primary Care Unava ilable Jesus Soliman Attending Unavailable Care Physician, No Primary Referring Unava ilable Jesus Soliman Attending Unavailable Care Physician, No Primary Referring Unava ilable Care Physician, No Primary Primary Care Unava ilable Medications Current Medications Medication Drug Class(es) Dates Sig (Normalized) Sig (Original) cephalexin 500 mg oral capsule (2 sources) Cephalosporin Antibacterial Start: 10-25-2023 End: 11-01-2023 cephalexin 500 mg oral capsule Dose : 500 mg = 1 cap(s), Oral, q12h, X 7 day(s), # 14 cap(s), 0 Refill(s), 11/01/23 4:38:00 PM EDT, 114.7 Start Date: 10/25/23 Stop Date: 11/01/23 Status: Ordered Start: 11-25-2022 End: 12-05-2022 cephalexin 500 mg oral capsu le Dose : 500 mg = 1 cap(s), Oral, q12h, X 10 day(s), # 20 cap(s), 0 Refill(s), 12/05/22 4:41:00 PM EDT, 113.6 Start Date: 11/25/22 Stop Date: 12/05/22 Status: Ordered diazePAM 10 mg oral tablet (3 sources) Benzodiazepine Start: 02-23-2022 take 1 tablet by mouth three times daily as needed for dizziness Diazepam (Valium) 10 mg tablet Active 10 mg PO THREE TIMES A DAY as needed for dizziness or vertigo 14 February 23, 2022 1:00am lidocaine 0.05 mg/mg medicated patch (1 source) Antiarrhythmic, Amide Local Anesthetic Start: 01-14-2023 End: 01-15-2023 lidocaine 5% topical patch Apply 1 patch(es), Transdermal, Daily, # 10 patch(es), 0 Refill(s), 113.6 Start Date: 01/14/23 Stop Date: 01/15/23 Status: Ordered naproxen 500 mg oral tablet (1 source) Nonsteroidal Anti-inflammatory Drug Start: 01-14-2023 End: 01-15-2023 naproxen 500 mg oral tablet Dose : 500 mg = 1 tab(s), Oral, BID, # 14 tab(s), 0 Refill(s), 01/15/23 12:45:00 PM EST Start Date: 01/14/23 Stop Date: 01/15/23 Status: Ordered ondansetron 4 mg disintegrating oral tablet (4 sources) Serotonin-3 Receptor Antagonist Start: 02-15-2022 take 1 tablet by mouth every eight hours as needed for nausea Ondansetron 4 MG tablet Active 4 mg PO EVERY 8 HOURS NEEDED as needed for Nausea 10 February 15, 2022 1:00am promethazine hydrochloride 25 mg oral tablet (3 sources) Phenothiazine Start: 02-23-2022 take 1 tablet by mouth every six hours as needed for nausea Promethazine 25 mg tablet Active 25 mg PO EVERY 6 HOURS NEEDED as needed for Nausea 10 February 23, 2022 1:00am sulfamethoxazole 800 mg / trimethoprim 160 mg oral tablet (2 sources) Dihydrofolate Reductase Inhibitor Antibacterial, Sulfonamide Antimicrobial Start: 10-25-2023 End: 11-01-2023 take 1 tablet by mouth twice daily Bactrim DS 800 mg-160 mg oral tablet Dose = 1 tab(s), Oral, BID, X 7 day(s), # 14 tab(s), 0 Refill(s), 114.7 Start Date: 10/25/23 Stop Date: 11/01/23 Status: Ordered Start: 11-25-2022 End: 12-05-2022 take 1 tablet by mouth twice daily Bactrim DS 800 mg-160 mg oral tablet Dose = 1 tab(s), Oral, BID, X 10 day(s), # 20 tab(s), 0 Refill(s), 113.6 Start Date: 11/25/22 Stop Date: 12/05/22 Status: Ordered Problems Problem Classification Problem Date Documented Da te Episodic/Chronic Administrative/social admission (2 sources) Patient encounter status; Translations: [Encounter for pre-employment examination] 09-26-2024 Episodic Conditions associated with dizziness or vertigo (3 sources) Vertigo; Translations: [Dizziness and giddiness] 02-23-2022 Episodic Nausea and vomiting (8 sources) Nausea, vomiting and diarrhea; Translations: [Nausea with vomiting, unspecified] 08-29-2019 Episodic Nonspecific chest pain (1 source) Chest pain; Translations: [Other chest pain] Onset: 01-14-2023 Episodic Open wounds of extremities (4 sources) Open wound of foot, excluding toe(s); Translations: [Laceration without foreign body, left foot, initial encounter] 10-03-2019 Episodic Other circulatory disease (3 sources) Elevated blood pressure; Translations: [Elevated blood-pressure reading, without diagnosis of hypertension] 02-23-2022 Episodic Other skin disorders (1 source) Ingrowing nail; Translations: [Ingrowing nail] Onset: 11-25-2022 Episodic Skin and subcutaneous tissue infections (1 source) Pilonidal cyst with abscess; Translations: [Pilonidal abscess] Onset: 10-25-2023 Episodic Viral infection (4 sources) Viral disease; Translations: [Viral infection, unspecified] 02-23-2022 Episodic Results Test Name Value Interpretation Reference Range Facility Office Visit Reporton 2024 Office Visit Report [facility] [address] [place] [address] OFFICE VISIT Date of Service: 09/26/24 MR#: [id number] Acct: [id number] Patient: NAVI BROWN Rep #: [id number] : 2000 Provider: HUONG Echevarria Age/Sex: 24/M Location: [facility] Status: Signed Intake Vital Signs 02/23/22 12:01 Height 1.91 m Intake Visit Reasons: PE/NON DOT DRUG/[facility] Chief Complaint: pre employment physical Allergies No Known Allergies Allergy (Verified 09/26/24 14:55) Office Procedures [facility] Billing Sheet Testing Pre-Employment Drug Screen [facility]: Yes Pre-Employment PE: Yes 10/09/24 1050 Date Jesus Abbott Signature: Date (if applicable) CC: Normal [facility] Office Visit Reporton 2024 Office Visit Report [facility] [address] [place] [address] OFFICE VISIT Date of Service: 09/26/24 MR#: [id number] Acct: [id number] Patient: NAVI BROWN Rep #: [id number] : 2000 Provider: HUONG Echevarria Age/Sex: 23/M Location: [facility] Status: Signed Intake Vital Signs 02/23/22 12:01 Height 1.91 m Intake Visit Reasons: PE/NON DOT PHYSICAL/[facility] Chief Complaint: pre employment physical Accompanied by: Self Allergies No Known Allergies Allergy (Verified 09/26/24 14:55) Nurse's Note: Patient here for a pre-employment physical for [employer]. [facility] Social History Smoking Status: Never smoker HPI HPI Chief Complaint: pre employment physical Details: NAVI BROWN, is a 23 M who presents to the office today for pre employment physical Office Procedures Physical Exam Coding PE Coding Pre-employment PE: Yes Coding Level of Care Code No Charge Diagnoses Physical exam, pre-employment Z02.1 Assessment and Plan Assessment and Plan (1) Physical exam, pre-employment: Status: Acute Plan: pre employment physical see accompanying paperwork. 09/26/24 1509 Date Jesus Ramon HUONG Ingramigner Signature: Date (if applicable) CC: Normal [facility] .Auto Diffon 10-25-2023 Basophil, Absolute 0.0 10 3/mcL Normal 0.0-0.2 [facility] Comment on above: Performed By: #### B TAQUERIA RAHMAN, CBC, ADIFF, GFR, ANEU #### [address] [address] Basophils/100 WBC (Bld) 0.5 % Normal 0.0-2.5 [facility] Comment on above: Performed By: #### B TAQUERIA RAHMAN, CBC, ADIFF, GFR, ANEU #### [address] [address] Eosinophil, Absolute 0.0 10 3/mcL Normal 0.0-0.[address] [facility] Comment on above: Performed By: #### B TAQUERIA RAHMAN, CBC, ADIFF, GFR, ANEU #### [address] [address] Eosinophils/100 WBC (Bld) 0.5 % Normal 0.0-7.0 [facility] Comment on above: Performed By: #### B TAQUERIA RAHMAN, CBC, ADIFF, GFR, ANEU #### [address] [address] Lymphocyte, Absolute 1.3 10 3/mcL Normal 0.8-3.[address] [facility] Comment on above: Performed By: #### B TAQUERIA RAHMAN, CBC, ADIFF, GFR, ANEU #### [address] [address] Lymphocytes/100 WBC (Bld) 23.0 % Normal 10.0-50.0 [facility] Comment on above: Performed By: #### B TAQUERIA RAHMAN, CBC, ADIFF, GFR, ANEU #### [address] [address] Monocyte, Absolute 0.9 10 3/mcL Normal 0.2-1.0 [facility] Comment on above: Performed By: #### B JOSIAH, W, CBC, ADIFF, GFR, ANEU #### [address] [address] Monocytes/100 WBC (Bld) 16.5 % High 1.7-13.0 [facility] Comment on above: Performed By: #### B JOSIAH, W, CBC, ADIFF, GFR, ANEU #### [address] [address] Neutrophils/100 WBC (Bld) 59.5 % Normal 37.0-80.0 [facility] Comment on above: Performed By: #### B TAQUERIA RAHMAN, CBC, ADIFF, GFR, ANEU #### [address] [address] .GFRon 10-25-2023 GFR 95 ml/min/1.73sqm Normal [facility] Comment on above: Result Comment: GFR Population mean for , Non- Americans Ages 20-29 = 116 mL/min/1.73 sq.m. Ages 30-39 = 107 mL/min/1.73 sq.m. Ages 40-49 = 99 mL/min/1.73 sq.m. Ages 50-59 = 93 mL/min/1.73 sq.m. Ages 60-69 = 85 mL/min/1.73 sq.m. Ages 70+ = 75 mL/min/1.73 sq.m. Chronic Kidney Disease: Less than 60 mL/min/1.73 square meters End Stage Renal Disease: Less than 15 mL/min/1.73 square meters Performed By: #### B JOSIAH, W, CBC, ADIFF, GFR, ANEU #### [address] [address] GFR Non- 78 ml/min/1.73sqm Normal [facility] Comment on above: Result Comment: GFR Population mean for , Non- Americans Ages 20-29 = 116 mL/min/1.73 sq.m. Ages 30-39 = 107 mL/min/1.73 sq.m. Ages 40-49 = 99 mL/min/1.73 sq.m. Ages 50-59 = 93 mL/min/1.73 sq.m. Ages 60-69 = 85 mL/min/1.73 sq.m. Ages 70+ = 75 mL/min/1.73 sq.m. Chronic Kidney Disease: Less than 60 mL/min/1.73 square meters End Stage Renal Disease: Less than 15 mL/min/1.73 square meters Performed By: #### B TAQUERIA RAHMAN, CBC, ADIFF, GFR, ANEU #### [address] [address] .MDWon 10-25-2023 Monocyte Distribution Width 23.15 High 0.00-20.00 [facility] Comment on above: Result Comment: For adults in ED, MDW>20.0 may be associated with a higher risk of sepsis during the first 12hrs of hospital admission Performed By: #### B TAQUERIA RAHMAN, CBC, ADIFF, GFR, ANEU #### [address] [address] .NEUABSon 10-25-2023 Neutrophil, Absolute 3.4 10 3/mcL Normal 2.9-6.[address] [facility] Comment on above: Performed By: #### B TAQUERIA RAHMAN, CBC, ADIFF, GFR, ANEU #### [address] [address] BMPon 10-25-2023 BUN/Creatinine Ratio 8 ratio Normal 7-27 [facility] Comment on above: Performed By: #### B TAQUERIA RAHMAN, CBC, ADIFF, GFR, ANEU #### [address] [address] Calcium [Mass/Vol] 9.3 mg/dL Normal 8.4-10.2 [facility] Comment on above: Performed By: #### B TAQUERIA RAHMAN, CBC, ADIFF, GFR, ANEU #### [address] [address] Chloride [Moles/Vol] 103 mmol/L Normal 98-107 [facility] Comment on above: Performed By: #### B TAQUERIA RAHMAN, CBC, ADIFF, GFR, ANEU #### [address] [address] CO2 [Moles/Vol] 27 mmol/L Normal 22-29 [facility] Comment on above: Performed By: #### B TAQUERIA RAHMAN, CBC, ADIFF, GFR, ANEU #### [address] [address] Creatinine [Mass/Vol] 1.14 mg/dL Normal 0.70-1.30 [facility] Comment on above: Result Comment: Test ing performed on Siemens Dimension EXL analyzer using a modified kinetic Akhil technique. Performed By: #### B TAQUERIA RAHMAN, CBC, ADIFF, GFR, ANEU #### [address] [address] Electrolyte Balance 9.0 mEq/L Normal 4.0-15.0 [facility] Comment on above: Performed By: #### B TAQUERIA RAHMAN, CBC, ADIFF, GFR, ANEU #### [address] [address] Glucose [Mass/Vol] 98 mg/dL Normal 70-105 [facility] Comment on above: Performed By: #### B TAQUERIA RAHMAN, CBC, ADIFF, GFR, ANEU #### [address] [address] Potassium [Moles/Vol] 3.7 mmol/L Normal 3.5-5.1 [facility] Comment on above: Performed By: #### B TAQUERIA RAHMAN, CBC, ADIFF, GFR, ANEU #### [address] [address] Sodium [Moles/Vol] 139 mmol/L Normal 136-145 [facility] Comment on above: Performed By: #### B TAQUERIA RAHMAN, CBC, ADIFF, GFR, ANEU #### [place] [address] Urea nitrogen [Mass/Vol] 9 mg/dL Normal 7-18 [facility] Comment on above: Performed By: #### B TAQUERIA RAHMAN, CBC, ADIFF, GFR, ANEU #### [place] [address] CBCon 10-25-2023 Erythrocyte distribution width (RBC) [Ratio] 13.7 % Normal 11.5-14.5 [facility] Comment on above: Performed By: #### B TAQUERIA RAHMAN, CBC, ADIFF, GFR, ANEU #### [place] [address] Hematocrit (Bld) [Volume fraction] 43.7 % Normal 42.0-52.0 [facility] Comment on above: Performed By: #### B TAQUERIA RAHMAN, CBC, ADIFF, GFR, ANEU #### [place] [address] Hgb 14.7 G/dL Normal 14.0-18.0 [facility] Comment on above: Performed By: #### B TAQUERIA RAHMAN, CBC, ADIFF, GFR, ANEU #### [place] [address] MCH (RBC) [Entitic mass] 29.0 pg Normal 27.0-31.2 [facility] Comment on above: Performed By: #### B TAQUERIA RAHMAN, CBC, ADIFF, GFR, ANEU #### [place] [address] MCHC 33.5 G/dL Normal 31.8-35.4 [facility] Comment on above: Performed By: #### B TAQUERIA RAHMAN, CBC, ADIFF, GFR, ANEU #### [place] [address] MCV (RBC) [Entitic vol] 86.7 fL Normal 80.0-94.0 [facility] Comment on above: Performed By: #### B TAQUERIA RAHMAN, CBC, ADIFF, GFR, ANEU #### [address] [address] Platelet 243 10 3/mcL Normal 130-400 [facility] Comment on above: Performed By: #### B JOSIAH, W, CBC, ADIFF, GFR, ANEU #### [address] [address] Platelet mean volume (Bld) [Entitic vol] 7.5 fL Normal 7.4-10.4 [facility] Comment on above: Performed By: #### B JOSIAH, TAQUERIA, CBC, ADIFF, GFR, ANEU #### [address] [address] RBC 5.05 10 6/mcL Normal 4.04-6.13 [facility] Comment on above: Performed By: #### B TAQUERIA RAHMAN, CBC, ADIFF, GFR, ANEU #### [address] [address] WBC 5.8 10 3/mcL Normal 4.6-10.8 [facility] Comment on above: Performed By: #### B TAQUERIA RAHMAN, CBC, ADIFF, GFR, ANEU #### [address] [address] [address] ABD/PELVIS W/ IV CONTRAST ONLYon 10-25-2023 CT ABD/PELVIS W/ IV CONTRAST ONLY ORIGINAL EXAMINATION: CT OF THE ABDOMEN AND PELVIS WITH CONTRAST10/25/2023 3:55 pm TECHNIQUE: CT of the abdomen and pelvis was performed with the administration of intravenous contrast. Multiplanar reformatted images are provided for review. Automated exposure control, iterative reconstruction, and/or weight based adjustment of the mA/kV was utilized to reduce the radiation dose to as low as reasonably achievable. COMPARISON: None HISTORY: ORDERING SYSTEM PROVIDED HISTORY: Reason for Exam: pain, FINDINGS: Trace right pleural effusion. No significant left pleural effusion. The lung bases are clear. The heart is normal in size. The liver, right adrenal gland, and pancreas are within normal limits. Borderline enlarged spleen. There is a 1.1 cm left adrenal nodule that measures approximately 46 HU. The gallbladder is unremarkable. Symmetric nephrograms. No hydronephrosis. The ureters are normal in course and caliber. The urinary bladder appears unremarkable. The large and small bowel demonstrate no obstruction. The appendix is normal. Fatty infiltration noted in the proximal colon and distal portions of the small bowel, findings may be seen with chronic inflammatory changes. No free intraperitoneal fluid or gas is identified. The aorta is normal in caliber. No abdominopelvic lymphadenopathy. There is no acute fracture or aggressive osseous lesion. Tiny fat containing umbilical hernia. There is a 1.5 cm nodular density measuring 17 HU mass in the superior gluteal crease eccentric to the left may represent an epidermoid inclusion cyst, there is mild subcutaneous fat stranding seen surrounding this nodule. IMPRESSION: No acute abdominopelvic process. Indeterminate 1.1 cm left adrenal nodule. Consider 12 month follow-up adrenal CT protocol for further evaluation. 1.5 cm nodular density in the superior gluteal crease eccentric to the left with mild surrounding soft tissue stranding. These findings may represent an epidermoid inclusion cyst. A superimposed infectious process cannot be excluded given the adjacent mild fat stranding, suggest to correlate with physical exam. Trace right pleural effusion. Preliminary Report was Dictated by a Resident I have personally reviewed all of the images of this examination and agree with the resident findings and interpretation. Interpreted by: Joseph Goel MD Preliminary Report By: Caitlin Jarquin Electronically signed By Joseph Goel MD Dictated Date: 10/25/2023 4:00:31 PM Prelim Date: 10/25/2023 4:13:51 PM Sign Date: 10/25/2023 8:40:31 PM Ordering Provider: SHAW Winston [facility]ATORYOrdered By: SYSTEM SYSTEM on 10-25-2023 Lactate [Moles/Vol] 1.2 mmol/L Normal 0.4 - 2. 0 mmol/L AO ADM SS Basophils (Bld) [#/Vol] 0.0 103/mcL Normal 0.0 - 0.2 10^3/mcL AO Workflow SS Basophils/100 WBC (Bld) 0.5 % Normal 0.0 - 2.5 % AO Workflow SS Calcium [Mass/Vol] 9.3 mg/dL Normal 8.4 - 10. 2 mg/dL AO ADM SS Chloride [Moles/Vol] 103 mmol/L Normal 98 - 10 7 mmol/L AO ADM SS CO2 [Moles/Vol] 27 mmol/L Normal 22 - 29 mmol/L AO ADM SS Creatinine [Mass/Vol] 1.14 mg/dL Normal 0.70 - 1.30 mg/dL AO ADM SS Comment on above: Interpretive Data: T esting performed on Siemens Dimension EXL analyzer using a modified kinetic Akhil technique. Electrolyte Balance 9.0 mEq/L Normal 4.0 - 15 .0 mEq/L AO ADM SS Eosinophil, Absolute 0.0 103/mcL Normal 0.0 - 0 .4 10^3/mcL AO Workflow SS Eosinophils/100 WBC (Bld) 0.5 % Normal 0.0 - 7.0 % AO Workflow SS Erythrocyte distribution width (RBC) [Ratio] 13.7 % Normal 11.5 - 14.5 % AO Workflow SS GFR/1.73 sq M.predicted among blacks MDRD (S/P/Bld) [Vol rate/Area] 95 ml/min/1.73sqm Invalid Interpretation Code AO Chemistry S Comment on above: Interpretive Data: GFR Population mean for , Non- Americans Ages 20-29 = 116 mL/min/1.73 sq.m. Ages 30-39 = 107 mL/min/1.73 sq.m. Ages 40-49 = 99 mL/min/1.73 sq.m. Ages 50-59 = 93 mL/min/1.73 sq.m. Ages 60-69 = 85 mL/min/1.73 sq.m. Ages 70+ = 75 mL/min/1.73 sq.m. Chronic Kidney Disease: Less than 60 mL/min/1.73 square meters End Stage Renal Disease: Less than 15 mL/min/1.73 square meters GFR/1.73 sq M.predicted among non-blacks MDRD (S/P/Bld) [Vol rate/Area] 78 ml/min/1.73sqm Invalid Interpretation Code AO Chemistry S Comment on above: Interpretive Data: GFR Population mean for , Non- Americans Ages 20-29 = 116 mL/min/1.73 sq.m. Ages 30-39 = 107 mL/min/1.73 sq.m. Ages 40-49 = 99 mL/min/1.73 sq.m. Ages 50-59 = 93 mL/min/1.73 sq.m. Ages 60-69 = 85 mL/min/1.73 sq.m. Ages 70+ = 75 mL/min/1.73 sq.m. Chronic Kidney Disease: Less than 60 mL/min/1.73 square meters End Stage Renal Disease: Less than 15 mL/min/1.73 square meters Glucose [Mass/Vol] 98 mg/dL Normal 70 - 105 mg/dL AO ADM SS Hematocrit (Bld) [Volume fraction] 43.7 % Normal 42.0 - 52.0 % AO Workflow SS Hemoglobin (Bld) [Mass/Vol] 14.7 G/dL Normal 14.0 - 18.0 G/dL AO Workflow SS Lymphocytes (Bld) [#/Vol] 1.3 103/mcL Normal 0.8 - 3.9 10^3/mcL AO Workflow SS Lymphocytes/100 WBC (Bld) 23.0 % Normal 10.0 - 50.0 % AO Workflow SS MCH (RBC) [Entitic mass] 29.0 pg Normal 27.0 - 31.2 pg AO Workflow SS MCHC 33.5 G/dL Normal 31.8 - 35.4 G/dL AO Workflow SS MCV (RBC) [Entitic vol] 86.7 fL Normal 80.0 - 94.0 fL AO Workflow SS Monocyte distribution width Auto (Bld) [Entitic vol] 23.15 1 High 0.00 - 20.00 AO Workflow SS Comment on above: Result Comment: For adults in ED, MDW>20.0 may be associated with a higher risk of sepsis during the first 12hrs of hospital admission Monocytes (Bld) [#/Vol] 0.9 103/mcL Normal 0.2 - 1.0 10^3/mcL AO Workflow SS Monocytes/100 WBC (Bld) 16.5 % High 1.7 - 13.0 % AO Workflow SS Neutrophils (Bld) [#/Vol] 3.4 103/mcL Normal 2.9 - 6.2 10^3/mcL AO Workflow SS Neutrophils/100 WBC (Bld) 59.5 % Normal 37.0 - 80.0 % AO Workflow SS Platelet mean volume (Bld) [Entitic vol] 7.5 fL Normal 7.4 - 10.4 fL AO Workflow SS Platelets (Bld) [#/Vol] 243 103/mcL Normal 130 - 400 10^3/mcL AO Workflow SS Potassium [Moles/Vol] 3.7 mmol/L Normal 3.5 - 5.1 mmol/L AO ADM SS RBC (Bld) [#/Vol] 5.05 106/mcL Normal 4.04 - 6.1 3 10^6/mcL AO Workflow SS Sodium [Moles/Vol] 139 mmol/L Normal 136 - 145 mmol/L AO ADM SS Urea nitrogen [Mass/Vol] 9 mg/dL Normal 7 - 18 mg/dL AO ADM SS Urea nitrogen/Creatinine [Mass ratio] 8 ratio Normal 7 - 27 ratio AO ADM SS WBC (Bld) [#/Vol] 5.8 103/mcL Normal 4.6 - 10.8 10^3/mcL AO Workflow SS LACon 10-25-2023 Lactic Acid Lvl 1.2 mmol/L Normal 0.4-2.0 [facility] Comment on above: Performed By: #### L #### [place] [id number] [place], [place] [address] No Panel Informationon 10-24 Microscopic examination of blood, culture Culture has been received in lab and is no growth to date. Routine cultures are held for 5 days. [facility] LABORATORYOrdered By: SYSTEM SYSTEM on 01-14-2023 Troponin I.cardiac DL <= 0.01 ng/mL [Mass/Vol] ng/L Normal 0.0 - 76.2 ng/L AO ADM SS TROPHSon 01-14-2023 Troponin I High Sensitivity <4.0 Normal 0.0-76.2 [facility] ([place]) Comment on above: Performed By: #### T [facility] #### [address] [address] XR CHEST 2 VIEWSon 3 XR CHEST 2 VIEWS ORIGINAL EXAMINATION: TWO XRAY VIEWS OF THE CHEST01/14/2023 11:56 am COMPARISON: None HISTORY: ORDERING SYSTEM PROVIDED HISTORY: Reason for Exam: Chest Pain FINDINGS: The heart is borderline in size but may be exaggerated by the technique. Lung volumes are low. Mild patchy bibasilar atelectasis noted. No pneumothorax or pleural effusion. No aggressive osseous lesions identified.Bony detail is not optimal. IMPRESSION: Low lung volumes with probable mild bibasilar atelectasis Interpreted by: Luis Wade MD Preliminary Report By: Luis Wade MD Electronically signed By Luis Wade MD Dictated Date: 01/14/2023 12:06:01 PM Prelim Date: 01/14/2023 12:07:30 PM Sign Date: 01/14/2023 12:07:30 PM Ordering Provider: CECILIA STREETER [facility] ([place]) Absolute lymphocyte countOrd ered By: Dr. Echavarria on 02-23-2022 Lymphocytes Auto (Unsp spec) [#/Vol] 1.62 10*3/uL 0.83-4.[address] [facility] Basophil percentageOrdered B y: Dr. Echavarria on 02-23-2022 Basophils/100 WBC (Bld) 0.5 % 0-[address] [facility] Bilirubin [Mass/Vol] 0.70 mg/dL 0.20-1.00 [facility] Comment on above: For patients on eltr ombopag therapy, use of Dimension [place] TBIL is not recommended. Chloride [Moles/Vol] 103 mmol/L 98-107 [facility] Eosinophils/100 WBC (Bld) 2.3 % 0-[address] [facility] Glucose [Mass/Vol] 92 mg/dL 74-106 [facility] Neutrophils (Bld) [#/Vol] 4.2 10*3/uL 2.0-7.[address] [facility] Neutrophils/100 WBC (Bld) 64.2 % 47-[address] [facility] Potassium [Moles/Vol] 4.1 mmol/L 3.5-5.1 [facility] Protein [Mass/Vol] 7.7 g/dL 6.4-8.2 [facility] Sodium [Moles/Vol] 138 mmol/L 136-145 [facility] WBC (Bld) [#/Vol] 6.5 10*3/uL 4.4-11.0 [facility] Blood erythrocytes count (nu mber/volume)Ordered By: Dr. Echavarria on 02-23-2022 RBC (Bld) [#/Vol] 5.42 10*6/uL 4.6-6.2 [facility] Blood hemoglobin measurement (mass/volume)Ordered By: Dr. Echavarria on 02-23-2022 Hemoglobin (Bld) [Mass/Vol] 15.4 g/dL 13.0-16.[address] [facility] Blood lymphocytes/100 leukoc ytesOrdered By: Dr. Echavarria on 02-23-2022 Lymphocytes/100 WBC (Bld) 25.0 % 19-[address] [facility] Blood monocytes/100 leukocyt esOrdered By: Dr. Echavarria on 02-23-2022 Monocytes/100 WBC (Bld) 7.7 % 0-[address] [facility] Blood platelet mean volumeOr dered By: Dr. Echavarria on 02-23-2022 Platelet mean volume (Bld) [Entitic vol] 9.5 fL 6.2-12.[address] [facility] Determination of erythrocyte mean corpuscular volume (MCV)Ordered By: Dr. Echavarria on 02-23-2022 MCV (RBC) [Entitic vol] 84.7 fL 80-[address] [facility] Hematocrit Auto (Bld) [Volum e fraction]Ordered By: Dr. Echavarria on 02-23-2022 Hematocrit (Bld) [Volume fraction] 45.9 % 40-[address] [facility] Laboratory - Chemistry and C hemistry - challengeOrdered By: Dr. Echavarria on 02-23-2022 ALP [Catalytic activity/Vol] 64 U/L 45-[address] [facility] ALT [Catalytic activity/Vol] 36 U/L 16-[address] [facility] CO2 [Moles/Vol] 28.0 mmol/L 21.0-32.[address] [facility] Globulin (S) [Mass/Vol] 3.6 g/dL 2.2-4.[address] [facility] Urea nitrogen/Creatinine [Mass ratio] 11.6 mg/mg 10-[address] [facility] Laboratory - Hematology and Cell countsOrdered By: Dr. Echavarria on 02-23-2022 Erythrocyte distribution width (RBC) [Entitic vol] 39.2 fL 35.1-43.[address] [facility] Erythrocyte distribution width (RBC) [Ratio] 12.7 % 11.6-14.[address] [facility] Immature granulocytes/100 WBC (Bld) 0.300 % 0.0-0.[address] [facility] Comment on above: IG% - Immature Granu locytes (promyelocytes, myelocytes and metamyelocytes) > 1% indicates that a LEFT SHIFT is Present. MCH (RBC) [Entitic mass] 28.4 pg 27.0-32.[address] [facility] Nucleated RBC/100 WBC (Bld) [Ratio] 0 % 0-[address] [facility] MCHC Auto (RBC) [Mass/Vol]Or dered By: Dr. Echavarria on 02-23-2022 MCHC (RBC) [Mass/Vol] 33.6 g/dL 32-36 [facility] No Panel InformationOrdered By: Dr. Echavarria on 02-23-2022 Estimated Creatinine Clearance Calc 159.67 ml/min [facility] Estimated GFR (MDRD) Amer 141 mL/min >[address] [facility] Comment on above: GFR Calc Estimated GFR (MDRD) Non-Af Amer 117 mL/min >[address] [facility] Comment on above: Non- GFR Calc Platelets bldOrdered By: Dr. Echavarria on 02-23-2022 Platelets (Bld) [#/Vol] 318 10*3/uL 150-[address] [facility] Serum or plasma albumin thanh urement (mass/volume)Ordered By: Dr. Echavarria on 02-23-2022 Albumin [Mass/Vol] 4.1 g/dL 3.2-5.0 [facility] Serum or plasma albumin/glob ulin mass ratioOrdered By: Dr. Echavarria on 02-23-2022 Albumin/Globulin [Mass ratio] 1.1 {ratio} 0.9-2.[address] [facility] Serum or plasma calcium thanh urement (mass/volume)Ordered By: Dr. Echavarria on 02-23-2022 Calcium [Mass/Vol] 9.4 mg/dL 8.5-10.1 [facility] Serum or plasma creatinine m easurement (mass/volume)Ordered By: Dr. Echavarria on 02-23-2022 Creatinine [Mass/Vol] 0.86 mg/dL 0.70-1.30 [facility] Comment on above: The validity of the calculated GFR & GFRAA in patients over 70 years has not been determined. Clinical correlation is essential. Serum or plasma urea nitroge n measurement (mass/volume)Ordered By: Dr. Echavarria on 02-23-2022 Urea nitrogen [Mass/Vol] 10 mg/dL 7-[address] [facility] Thin prep Papanicolaou smear with manual screeningOrdered By: Dr. Echavarria on 02-23-2022 Thin prep Papanicolaou smear with manual screening 15 U/L 15-[address] [facility] Thin prep Papanicolaou smear with manual screening 7 5-[address] [facility] Absolute lymphocyte countOrd ered By: Dr. Echavarria on 02-15-2022 Lymphocytes Auto (Unsp spec) [#/Vol] 2.02 10*3/uL 0.83-4.[address] [facility] Basophil percentageOrdered B y: Dr. Echavarria on 02-15-2022 Basophils/100 WBC (Bld) 0.3 % 0-[address] [facility] Bilirubin [Mass/Vol] 0.50 mg/dL 0.20-1.00 [facility] Comment on above: For patients on eltr ombopag therapy, use of Dimension [place] TBIL is not recommended. Chloride [Moles/Vol] 109 mmol/L 98-107 [facility] Eosinophils/100 WBC (Bld) 0.8 % 0-[address] [facility] Glucose [Mass/Vol] 103 mg/dL 74-106 [facility] Comment on above: Fasting Glucose resu lt from 100 to 125 mg/dL suggests IMPAIRED HOMEOSTASIS per A.D.A. criteria. Neutrophils (Bld) [#/Vol] 8.5 10*3/uL 2.0-7.[address] [facility] Neutrophils/100 WBC (Bld) 74.9 % 47-[address] [facility] Potassium [Moles/Vol] 3.9 mmol/L 3.5-5.1 [facility] Protein [Mass/Vol] 7.5 g/dL 6.4-8.2 [facility] Sodium [Moles/Vol] 139 mmol/L 136-145 [facility] WBC (Bld) [#/Vol] 11.3 10*3/uL 4.4-11.0 [facility] Blood erythrocytes count (nu mber/volume)Ordered By: Dr. Echavarria on 02-15-2022 RBC (Bld) [#/Vol] 5.32 10*6/uL 4.6-6.2 [facility] Blood hemoglobin measurement (mass/volume)Ordered By: Dr. Echavarria on 02-15-2022 Hemoglobin (Bld) [Mass/Vol] 14.9 g/dL 13.0-16.[address] [facility] Blood lymphocytes/100 leukoc ytesOrdered By: Dr. Echavarria on 02-15-2022 Lymphocytes/100 WBC (Bld) 17.8 % 19-[address] [facility] Blood monocytes/100 leukocyt esOrdered By: Dr. Echavarria on 02-15-2022 Monocytes/100 WBC (Bld) 5.8 % 0-[address] [facility] Blood platelet mean volumeOr dered By: Dr. Echavarria on 02-15-2022 Platelet mean volume (Bld) [Entitic vol] 9.4 fL 6.2-12.[address] [facility] Determination of erythrocyte mean corpuscular volume (MCV)Ordered By: Dr. Echavarria on 02-15-2022 MCV (RBC) [Entitic vol] 85.0 fL 80-[address] [facility] Hematocrit Auto (Bld) [Volum e fraction]Ordered By: Dr. Echavarria on 02-15-2022 Hematocrit (Bld) [Volume fraction] 45.2 % 40-[address] [facility] Influenza virus A and B and SARS-CoV-2 (COVID-19) Ag panel - Upper respiratory specimOrdered By: Dr. Echavarria on 02-15-2022 SARS-CoV-2 (COVID-19) RNA GEOVANI+probe Ql (Resp) [facility] Laboratory - Chemistry and C hemistry - challengeOrdered By: Dr. Echavarria on 02-15-2022 ALP [Catalytic activity/Vol] 66 U/L 45-[address] [facility] ALT [Catalytic activity/Vol] 35 U/L 16-[address] [facility] CO2 [Moles/Vol] 25.0 mmol/L 21.0-32.[address] [facility] Globulin (S) [Mass/Vol] 3.5 g/dL 2.2-4.[address] [facility] Urea nitrogen/Creatinine [Mass ratio] 10.7 mg/mg 10-[address] [facility] Laboratory - Hematology and Cell countsOrdered By: Dr. Echavarria on 02-15-2022 Erythrocyte distribution width (RBC) [Entitic vol] 39.3 fL 35.1-43.[address] [facility] Erythrocyte distribution width (RBC) [Ratio] 12.7 % 11.6-14.[address] [facility] Immature granulocytes/100 WBC (Bld) 0.400 % 0.0-0.[address] [facility] Comment on above: IG% - Immature Granu locytes (promyelocytes, myelocytes and metamyelocytes) > 1% indicates that a LEFT SHIFT is Present. MCH (RBC) [Entitic mass] 28.0 pg 27.0-32.[address] [facility] Nucleated RBC/100 WBC (Bld) [Ratio] 0 % 0-[address] [facility] MCHC Auto (RBC) [Mass/Vol]Or dered By: Dr. Echavarria on 02-15-2022 MCHC (RBC) [Mass/Vol] 33.0 g/dL 32-36 [facility] No Panel InformationOrdered By: Dr. Echavarria on 02-15-2022 Estimated Creatinine Clearance Calc 163.47 ml/min [facility] Estimated GFR (MDRD) Amer 145 mL/min >[address] [facility] Comment on above: GFR Calc Estimated GFR (MDRD) Non-Af Amer 120 mL/min >[address] [facility] Comment on above: Non- GFR Calc Platelets bldOrdered By: Dr. Echavarria on 02-15-2022 Platelets (Bld) [#/Vol] 322 10*3/uL 150-[address] [facility] Serum or plasma albumin thanh urement (mass/volume)Ordered By: Dr. Echavarria on 02-15-2022 Albumin [Mass/Vol] 4.0 g/dL 3.2-5.0 [facility] Serum or plasma albumin/glob ulin mass ratioOrdered By: Dr. Echavarria on 02-15-2022 Albumin/Globulin [Mass ratio] 1.1 {ratio} 0.9-2.[address] [facility] Serum or plasma calcium thanh urement (mass/volume)Ordered By: Dr. Echavarria on 02-15-2022 Calcium [Mass/Vol] 8.8 mg/dL 8.5-10.1 [facility] Serum or plasma creatinine m easurement (mass/volume)Ordered By: Dr. Echavarria on 02-15-2022 Creatinine [Mass/Vol] 0.84 mg/dL 0.70-1.30 [facility] Comment on above: The validity of the calculated GFR & GFRAA in patients over 70 years has not been determined. Clinical correlation is essential. Serum or plasma urea nitroge n measurement (mass/volume)Ordered By: Dr. Echavarria on 02-15-2022 Urea nitrogen [Mass/Vol] 9 mg/dL 7-[address] [facility] Thin prep Papanicolaou smear with manual screeningOrdered By: Dr. Echavarria on 02-15-2022 Thin prep Papanicolaou smear with manual screening 16 U/L 15-[address] [facility] Thin prep Papanicolaou smear with manual screening 5 5-[address] [facility] Influenza virus A and B and SARS-CoV-2 (COVID-19) Ag panel - Upper respiratory specim SARS-CoV-2 (COVID-19) RNA GEOVANI+probe Ql (Resp) [facility] Work Phone: Vital Signs Date Time Vital Sign Value Performing Clinician Facility 10-25-2023 18:54-0400 Body temperature 98.96 [degF] ISAEL RIGGS MD [facility] 10-25-2023 18:54-0400 Diastolic Blood Pressure Non-Invasive 68 mm[Hg] ISAEL RIGGS MD [facility] 10-25-2023 18:54-0400 Heart rate 84 /min ISAEL RIGGS MD [facility] 10-25-2023 18:54-0400 Respiratory rate 20 /min ISAEL RIGGS MD [facility] 10-25-2023 18:54-0400 Systolic Blood Pressure Non-Invasive 135 mm[Hg] ISAEL RIGGS MD [facility] 10-25-2023 16:10-0400 Diastolic Blood Pressure Non-Invasive 85 mm[Hg] ISAEL RIGGS MD [facility] 10-25-2023 16:10-0400 Heart rate 73 /min ISAEL RIGGS MD [facility] 10-25-2023 16:10-0400 Respiratory rate 20 /min ISAEL RIGGS MD [facility] 10-25-2023 16:10-0400 Systolic Blood Pressure Non-Invasive 136 mm[Hg] ISAEL RIGGS MD [facility] 10-25-2023 14:19-0400 Body temperature 97.52 [degF] ISAEL RIGGS MD [facility] 10-25-2023 14:19-0400 Body weight 114.7 kg ISAEL RIGGS MD [facility] 10-25-2023 14:19-0400 Diastolic Blood Pressure Non-Invasive 84 mm[Hg] ISAEL RIGGS MD [facility] 10-25-2023 14:19-0400 Heart rate 76 /min ISAEL RIGGS MD [facility] 10-25-2023 14:19-0400 Respiratory rate 20 /min ISAEL RIGGS MD [facility] 10-25-2023 14:19-0400 Systolic Blood Pressure Non-Invasive 137 mm[Hg] ISAEL RIGGS MD [facility] 01-14-2023 13:02-0500 Diastolic Blood Pressure Non-Invasive 70 mm[Hg] CECILIA STREETER MD [facility] 01-14-2023 13:02-0500 Heart rate 70 /min CECILIA STREETER MD [facility] 01-14-2023 13:02-0500 Mean blood pressure 84 mm[Hg] CECILIA STREETER MD [facility] 01-14-2023 13:02-0500 Respiratory rate 16 /min CECILIA STREETER MD [facility] 01-14-2023 13:02-0500 Systolic Blood Pressure Non-Invasive 114 mm[Hg] CECILIA STREETER MD [facility] 01-14-2023 10:57-0500 Blood Pressure Location CECILIA STREETER MD [facility] 01-14-2023 10:57-0500 Body temperature 97.7 [degF] CECILIA STREETER MD [facility] 01-14-2023 10:57-0500 Diastolic Blood Pressure Non-Invasive 48 mm[Hg] CECILIA STREETER MD [facility] 01-14-2023 10:57-0500 Heart rate 86 /min CECILIA STREETER MD [facility] 01-14-2023 10:57-0500 Respiratory rate 22 /min CECILIA STREETER MD [facility] 01-14-2023 10:57-0500 Systolic Blood Pressure Non-Invasive 124 mm[Hg] CECILIA STREETER MD [facility] 11-25-2022 16:19-0400 Blood Pressure Cuff Size BRANDT INIGUEZ MD [facility] 11-25-2022 16:19-0400 Blood Pressure Location BRANDT INIGUEZ MD [facility] 11-25-2022 16:19-0400 Blood Pressure Method BRANDT INIGUEZ MD [facility] 11-25-2022 16:19-0400 Body temperature 98.78 [degF] BRANDT INIGUEZ MD [facility] 11-25-2022 16:19-0400 Body weight 113.6 kg BRANDT INIGUEZ MD [facility] 11-25-2022 16:19-0400 Diastolic Blood Pressure Non-Invasive 86 1 BRANDT INIGUEZ MD [facility] 11-25-2022 16:19-0400 Heart rate 68 /min BRANDT INIGUEZ MD [facility] 11-25-2022 16:19-0400 Respiratory rate 18 /min BRANDT INIGUEZ MD [facility] 11-25-2022 16:19-0400 Systolic Blood Pressure Non-Invasive 148 1 BRANDT INIGUEZ MD [facility] 02-23-2022 12:01-0500 Body height 190.5 cm [facility] 02-23-2022 12:01-0500 Body mass index (BMI) [Ratio] 31.2 kg/m2 [facility] 02-23-2022 12:01-0500 Body temperature 98 [degF] [facility] 02-23-2022 12:01-0500 Body weight 113.39 kg [facility] 02-23-2022 12:01-0500 Diastolic blood pressure 89 mm[Hg] [facility] 02-23-2022 12:01-0500 Heart rate 89 /min [facility] 02-23-2022 12:01-0500 Respiratory rate 16 /min [facility] 02-23-2022 12:01-0500 SaO2% (BldA) [Mass fraction] 99 % [facility] 02-23-2022 12:01-0500 Systolic blood pressure 132 mm[Hg] [facility] 02-15-2022 19:26-0500 Diastolic blood pressure 92 mm[Hg] [facility] 02-15-2022 19:26-0500 Heart rate 72 /min [facility] 02-15-2022 19:26-0500 Respiratory rate 22 /min [facility] 02-15-2022 19:26-0500 SaO2% (BldA) [Mass fraction] 100 % [facility] 02-15-2022 19:26-0500 Systolic blood pressure 131 mm[Hg] [facility] 02-15-2022 17:22-0500 Body height 190.5 cm [facility] Work Phone: 02-15-2022 17:22-0500 Body mass index (BMI) [Ratio] 31.5 kg/m2 [facility] 02-15-2022 17:22-0500 Body temperature 98.2 [degF] [facility] 02-15-2022 17:22-0500 Body weight 114.3 kg [facility] Encounters Encounter Date Encounter Type Care Provider Facility Start: 09-26-2024 End: 09-26-2024 Patient encounter procedure Jesus Ramon [facility] Work Phone: Start: 09-26-2024 End: 09-26-2024 ambulatory No Primary Care Physician [facility] Start: 10-25-2023 End: 10-25-2023 Emergency department patient visit ISAEL RIGGS MD [facility] Start: 01-14-2023 End: 01-14-2023 Emergency department patient visit CECILIA STREETER MD Facility:B Start: 01-14-2023 End: 01-14-2023 Emergency department patient visit CECILIA STREETER MD [facility] Start: 11-25-2022 End: 11-25-2022 Emergency department patient visit BRANDT INIGUEZ MD Facility:[facility] Start: 11-25-2022 End: 11-25-2022 Emergency department patient visit BRANDT INIGUEZ MD [facility] Start: 02-23-2022 End: 02-23-2022 Emergency department patient visit [facility] Start: 02-15-2022 End: 02-15-2022 Emergency department patient visit [facility] Procedures Date Procedure Procedure Detail Performing Clinician Start: 02-23-2022 Plain chest X-ray Start: 02-23-2022 CT of head without contrast Start: 02-15-2022 Plain chest X-ray SARS-CoV-2 & FLU Ant igen (Rapid) SARS-CoV-2 & FLU Ant igen (Rapid) Plan of Treatment Date Care Activity Detail Author Start: 02-15-2022 [facility] Patient Education [facility] Work Phone: Patient referral [facility] Work Phone: Payers Date Payer Category Payer Unknown [id number] 2022 Self-pay [id number] 1998 Unknown [id number] 1998 Unknown [id number] [id number] 1998 Unknown [id number] [id number] [id number] Unknown [id number] Unknown [id number] [id number] [id number] Unknown [id number] [id number] [id number] Social History Date Type Detail Facility Start: 02-15-2022 End: 02-23-2022 Tobacco smoking status NHIS Unknown if ever smoked [facility] Start: 12-28-2019 None [facility] Start: 12-28-2019 Spouse/ Signif icant Other [facility] Start: 10-15-2019 Cigarettes [facility] Start: 2000 Sex Assigned At Male [facility] Tobacco smoking status No Smoking Status Entered [facility] Start: 02-23-2022 Tobacco smoking status NHIS Never smoked tobacco (finding) [facility] Functional Status Date Assessment Result Facility 10-25-2023 Functional Status Independent [facility] 10-25-2023 Functional Status Standard Safet y ID band on, Call device within reach, Bed in low position, Wheels locked [facility] 01-14-2023 Functional Status Independent [facility] 01-14-2023 Functional Status ID band on [facility] 11-25-2022 Functional Status ID band on, Call device within reach, Bed in low position, Wheels locked, Upper/Half-Length side-rails up, Phone within reach, Visitor at bedside, Safety level maintained [facility] Mental Status Date Assessment Result Facility 10-25-2023 Mental Status Orientation Oriented x 4 [facility] 10-25-2023 Mental Status [facility] 01-14-2023 Mental Status Orientation Oriented x 4 [facility] 01-14-2023 Mental Status [facility] 11-25-2022 Mental Status Oriented x 4 [facility] 02-23-2022 Cognitive function Level Of Cons ciousness Awake;Alert;Appropriate [facility] Work Phone: 02-15-2022 Cognitive function Level Of Cons ciousness Awake;Alert;Appropriate;Follow s Commands [facility] Work Phone: Clinical Notes 02-23-2022 to 10-30-2023 Note Date & Type Note Facility 10-30-2023 Note . MICRO - Microbiology PROCEDURE: Blood Culture (bacterial) [*1] SOURCE: Blood BODY SITE: COLLECTED DATE/TIME: 10/25/2023 14:53 EDT RECEIVED DATE/TIME: 10/25/2023 18:46 EDT START DATE/TIME: 10/25/2023 18:46 EDT FREE TEXT SOURCE: FINAL REPORTS Final Report [] Verified Date/Time/Personnel: 10/30/2023 18:59 EDT Blood Culture: No Growth at 5 days. PRELIMINARY REPORTS Preliminary Report [] Verified Date/Time/Personnel: 10/25/2023 19:59 EDT Culture has been received in lab and is no growth to date. Routine cultures are held for 5 days. Performing Locations *1: This test was performed at: [address], [facility] , [facility] 10-30-2023 Note . MICRO - Microbiology PROCEDURE: Blood Culture (bacterial) [*1] SOURCE: Blood BODY SITE: COLLECTED DATE/TIME: 10/25/2023 14:53 EDT RECEIVED DATE/TIME: 10/25/2023 18:46 EDT START DATE/TIME: 10/25/2023 18:46 EDT FREE TEXT SOURCE: FINAL REPORTS Final Report [] Verified Date/Time/Personnel: 10/30/2023 18:59 EDT Blood Culture: No Growth at 5 days. PRELIMINARY REPORTS Preliminary Report [] Verified Date/Time/Personnel: 10/25/2023 19:59 EDT Culture has been received in lab and is no growth to date. Routine cultures are held for 5 days. Performing Locations *1: This test was performed at: [address], [facility] , [facility] 10-25-2023 Note Discharge Instructions Thank you for allowing [facility] to assist you with your healthcare needs. The following is important discharge information regarding your hospital visit. Diagnosis from Today's Visit Pilonidal cyst with abscess What to Do Next Instructions from Your Care Team A pilonidal cyst with abscess is already open and draining and thus additional incision and drainage not indicated. Continue to monitor the drainage. Take antibiotics as prescribed for the surrounding soft tissue and skin infection. Follow-up with surgery for definitive management as you may need surgery to remove the cyst however this cannot be done while acutely infected. Return to the emergency department for any acute worsening symptoms, continued drainage after 5 days, or other acute concerns. Otherwise follow-up in the outpatient setting as discussed. Discharge Return to Work, School, or Sports (Return to Work, School, or Sports) - Ordered -- 10/27/23, May return to: work, 10/25/23 19:15:00 EDT Post Acute Orders No qualifying data available. You Need to Schedule the Following Appointments Follow Up with Go to emergency room if symptoms worsen When:Within 2-4 days Follow Up with Follow up with primary care provider When:Within 2-4 days Follow Up with PEDRO LONDON MD, Surgery When:Within 3-7 days Where:[address] [facility] [place] [address]- [phone] Allergies NKA Medications Please ask your primary doctor or pharmacist before taking any other medication not listed, including over the counter drugs, herbal medications, vitamins and or supplements as they may interact with your home medications. What How Much When Instructions Last Dose New cephalexin (cephalexin 500 mg oral capsule) 1 cap by mouth Every 12 hours Duration: 7 Days Printed Prescription New sulfamethoxazole-trimethoprim (Bactrim DS 800 mg-160 mg oral tablet) 1 tab(s) by mouth Two (2) times a day Duration: 7 Days Printed Prescription Please take this list to your next doctor s visit. Bring all medications you take, including over the counter medications, herbals and other supplements with you to your doctor s visit. Patients and families are reminded to discard old lists and to update any records with all medication providers or retail pharmacies. Education Materials Infected Pilonidal Cyst (Incision & Drainage) A pilonidal cyst is a swelling that starts under the skin on the sacrum near the tail bone. It may look like a small dimple. It can fill with skin oils, hair, and skin cells. It may stay small or grow larger. Because it often has an opening to the surface, it may become infected with normal skin bacteria. Cause The cause of pilonidal cysts has been debated since they were first recognized. It may be present at and go unnoticed. Injury, rubbing, or skin irritation may also cause pilonidal cysts. It can also be caused by an ingrown hair. Most likely, the cause is a combination of these things. Because some injury or irritation can lead to pilonidal cysts, it can be more common in people who sit or drive a lot for work. Symptoms A pilonidal cyst may be small and painless. If it is inflamed or infected, you may have these symptoms: Swelling Irritation or redness Pain Drainage The cyst can swell and drain on its own. The swelling and drainage can come and go. Treatment Your pilonidal cyst was drained with a small incision using local anesthesia. After the incision and drainage, gauze packing may be inserted into the opening. If so, it should be removed in 1 to 2 days. Antibiotics are not required in the treatment of a simple abscess, unless the infection is spreading into the skin around the wound. The wound will take about 1 to 2 weeks to heal depending on the size of the cyst. Home care Wound care Pus may drain from the wound for the first few days. Cover the wound with a clean dry bandage. Change the bandage if it becomes soaked with blood or pus, or if it gets soiled with feces or urine. Sit in a tub filled with about 6 inches of hot water. Keep the water hot for 10 to15 minutes. If gauze packing was placed inside the cyst cavity, you may be told to remove it yourself. You may do this in the shower. Once the packing is removed, you should wash the area carefully in the shower once a day. Do this until the skin opening has closed. It is okay to direct the shower spray directly into the opening if this is not too painful. Medicines Take acetaminophen or ibuprofen for pain, unless you were given a different pain medicine to use. Talk with your doctor before using these medicines if you have chronic liver or kidney disease or have ever had a stomach ulcer or gastrointestinal bleeding. Also talk with your doctor if you are taking blood thinner medicines. If you were given antibiotics, take them until they are gone. It is important to finish the antibiotics even if the wound looks better. This is to make sure the infection has cleared. Use antibiotic cream or ointment if your healthcare provider tells you to do so. Prevention Once this infection has healed, the following may decrease the risk of future infections: Keep the area of the cyst clean by bathing or showering daily. Avoid tight-fitting clothing to minimize perspiration and irritation of the skin. Recurrent pilonidal cysts may be completely removed by surgery. But this can only be done at a time when there is no infection. Ask your doctor for more information. Follow-up care Follow up with your healthcare provider, or as advised. If a gauze packing was inserted in your wound, it should be removed in 1 to 2 days. Check your wound every day for the signs listed below. When to seek medical advice Call your healthcare provider right away if any of these occur: Pus continues to come from the cyst for 5 days after the incision Increasing redness, local pain, or swelling Fever of 100.4 F (38.0 C) or higher for more than 2 days, or as directed by your healthcare provider [phone] [employer]. [address] [place] [address]. All rights reserved. This information is not intended as a substitute for professional medical care. Always follow your healthcare professional's instructions. Pilonidal Cyst, Infected (Antibiotic Treatment) A pilonidal cyst is a swelling that starts under the skin on the sacrum near the tailbone. It may look like a small dimple. It can fill with skin oils, hair, and skin cells. It may stay small or grow larger. It may become infected with normal skin bacteria because it often has an opening to the surface. Causes The cause of pilonidal cysts has been debated since they were first recognized. A cyst may be present at and go unnoticed. Injury, rubbing, or skin irritation may also cause pilonidal cysts. It can also be caused by an ingrown hair. The cause is most likely a combination of these things. Because some injury or irritation can lead to pilonidal cysts, they can be more common in people who sit or drive a lot for work. Symptoms A pilonidal cyst may be small and painless. If it becomes inflamed or infected, you may have these symptoms: Swelling Irritation or redness Pain Drainage The cyst can swell and drain on its own. The swelling and drainage can come and go. Treatment A limited infection can be treated with antibiotics and home care. You have been given antibiotics to treat your infected pilonidal cyst. Home care The following guidelines will help you care for your wound at home: Sit in a tub filled with about 6 inches of hot water. Keep the water hot for 10 to 15 minutes. Don't squeeze the pilonidal cyst or stick a needle in it to drain it. This will make the infection worse, or spread it. Cover the cyst with a pad or something similar to keep it from becoming more irritated, damaged, and painful. Medicines Take acetaminophen or ibuprofen for pain, unless you were given a different pain medicine to use. Talk with your doctor before using these medicines if you have chronic liver or kidney disease, or have ever had a stomach ulcer or digestive bleeding. Also talk with your doctor if you are taking blood thinner medicines. Take the antibiotics that you were prescribed until they are all gone. To make sure the infection is cured, it is important to finish the antibiotics even if the wound looks better. Use antibiotic cream or ointment if your healthcare provider tells you to. Preventing future infections Once this infection has healed, follow these tips to lower the risk for another infection: Keep the area of the cyst clean by bathing or showering every day. Don't wear tight-fitting clothing. This will help lessen sweat and irritation of the skin. You may need surgery to completely remove the cyst if it keeps coming back. The surgery can only be done when the cyst is not infected. Ask your doctor for more information. Watch for signs of infection listed below so that treatment may be started early. Follow-up care Follow up with your healthcare provider, or as advised. Check your wound every day for the signs listed below. When to seek medical advice Call your healthcare provider right away if any of these occur: Pus coming from the cyst Increasing local pain, redness, or swelling Fever of 100.4 F (38.0 C) or higher for more than 2 days, or as directed by your healthcare provider [id number] [employer]. [address] [place] [address], [place] [address]. All rights reserved. This information is not intended as a substitute for professional medical care. Always follow your healthcare professional's instructions. Additional Information VACCINATE! IT SAVES LIVES! Members of the community who have not yet received the COVID-19 vaccine and would like to receive it can visit one of [facility] vaccine clinics. There are many vaccine clinic locations within the State. For locations and available times, please visit [email or web address].g [email or web address] It is important to note that some COVID mobile vaccine clinics are held outdoors and may be canceled in rainy or stormy conditions. To learn more about pediatric vaccinations (ages 5-11), we invite you to visit the [facility] webpage. [email or web address] To learn more about the COVID-19 vaccine, we invite you to visit the CDC website for a list of frequently asked questions. https://www.cdc.gov/coronavirus/2 019-ncov/vaccines/faq.html [facility] Patient Portal Access Instructions: Stay connected with your healthcare team and access your personal medical information anytime with the [facility] Patient Portal. If you would like a full copy of your medical records please contact the [facility] Medical Records Department Monday through Monday between 8a.m. and 4:30p.m. Please follow the directions below to access the portal: 1.Access the email account you provided upon registration to the hospital.2.Look for an invitation email from [facility].3.Open the email and access the invitation link: Accept Invitation to [facility]4.Fill in the required cantu to create your account. Sign into [email or web address] with your username and password that you created in the above steps to stay up to date. You can then view a summary of results, a summary of your visits, and the ability to download your summaries to your computer or send the information securely to a physician. Remember that your healthcare information is confidential, so carefully consider who you will allow to register on the [facility] Patient Portal for access to your information. You can also access the [facility] Patient Portal on the [employer] nuha. Simply click on Health Records under Health Data and then click on the [facility] logo. HOW TO SAFELY DISPOSE OF PRESCRIPTION MEDICATIONS Please use one of the following methods to safely dispose of your unused medications. 1.Use a drug disposal kit: the drug disposal pouch allows you to safely discard your old and unused drugs. Ask your nurse to give you one when you are discharged.2.Visit a local take-back location: Many local pharmacies and police departments have programs that collect old and unwanted prescription drugs. Call your local pharmacy or go to http://[employer]/2N0Vw9c to find one close to you.3.Make use of household items: Use cat litter or old coffee grounds to dispose medications if other options are not available. Mix your drugs with these household products, seal them in an airtight container and throw it into the garbage. Call [facility]: [phone] to be sure your drugs can be disposed of in this way. Some medicines may require a different approach.4.Never flush your medications down the toilet. IF YOU HAVE BEEN PRESCRIBED AN OPIOIDS FOR PAIN If you have been prescribed an opioid (such as hydrocodone, oxycodone or morphine), it is critical to understand the possible side effects and risks of opioid pain medications. Even when taken as directed, opioids can have several side effects including: Tolerance, meaning you might need to take more of a medication for the same pain relief. Nausea, vomiting and/or constipation. Sleepiness, dizziness, dry mouth, confusion, depression or itching. Physical dependence, meaning you have withdrawal symptoms when a medication is stopped ? this can develop within a few days. KNOW YOUR RESPONSIBILITIES It is important to know exactly how much and how often to take the opioid pain medications you are prescribed. Never take opioids in higher amounts or more often than prescribed. Do not combine opioids with alcohol or other drugs that cause drowsiness, such as benzodiazepines, also known as benzos, including diazepam and alprazolam, muscle relaxants or sleep aids. Never sell or share prescription opioids. This is illegal. Store opioids in a secure place and out of reach of others (including children, family, friends and visitors). The last page(s) of this document has been signed and retained as a CHART COPY Signatures Patient Education Materials Pilonidal Cyst, Infected (Incision And Drainage) Pilonidal Cyst, Infected (Antibiotics) Medication Leaflets My discharge plan and instructions have been reviewed and explained to me and I,NAVI BROWN understand my current condition and have read and understand these discharge instructions. I have received a written copy of the plan/instructions. If I have questions, I am aware that I should contact my doctor. Patient/[employer]fg [employer] Signature: Date/Time: Relationship to Patient: ____ Witness Name/Signature: Date/Time: [facility] 10-25-2023 Hospital Discharge instructions Patient Education 10/25/2023 16:36:44 Pilonidal Cyst, Infected (Incision And Drainage) Infected Pilonidal Cyst (Incision & Drainage) A pilonidal cyst is a swelling that starts under the skin on the sacrum near the tail bone. It may look like a small dimple. It can fill with skin oils, hair, and skin cells. It may stay small or grow larger. Because it often has an opening to the surface, it may become infected with normal skin bacteria. Cause The cause of pilonidal cysts has been debated since they were first recognized. It may be present at and go unnoticed. Injury, rubbing, or skin irritation may also cause pilonidal cysts. It can also be caused by an ingrown hair. Most likely, the cause is a combination of these things. Because some injury or irritation can lead to pilonidal cysts, it can be more common in people who sit or drive a lot for work. Symptoms A pilonidal cyst may be small and painless. If it is inflamed or infected, you may have these symptoms: Swelling Irritation or redness Pain Drainage The cyst can swell and drain on its own. The swelling and drainage can come and go. Treatment Your pilonidal cyst was drained with a small incision using local anesthesia. After the incision and drainage, gauze packing may be inserted into the opening. If so, it should be removed in 1 to 2 days. Antibiotics are not required in the treatment of a simple abscess, unless the infection is spreading into the skin around the wound. The wound will take about 1 to 2 weeks to heal depending on the size of the cyst. Home care Wound care Pus may drain from the wound for the first few days. Cover the wound with a clean dry bandage. Change the bandage if it becomes soaked with blood or pus, or if it gets soiled with feces or urine. Sit in a tub filled with about 6 inches of hot water. Keep the water hot for 10 to15 minutes. If gauze packing was placed inside the cyst cavity, you may be told to remove it yourself. You may do this in the shower. Once the packing is removed, you should wash the area carefully in the shower once a day. Do this until the skin opening has closed. It is okay to direct the shower spray directly into the opening if this is not too painful. Medicines Take acetaminophen or ibuprofen for pain, unless you were given a different pain medicine to use. Talk with your doctor before using these medicines if you have chronic liver or kidney disease or have ever had a stomach ulcer or gastrointestinal bleeding. Also talk with your doctor if you are taking blood thinner medicines. If you were given antibiotics, take them until they are gone. It is important to finish the antibiotics even if the wound looks better. This is to make sure the infection has cleared. Use antibiotic cream or ointment if your healthcare provider tells you to do so. Prevention Once this infection has healed, the following may decrease the risk of future infections: Keep the area of the cyst clean by bathing or showering daily. Avoid tight-fitting clothing to minimize perspiration and irritation of the skin. Recurrent pilonidal cysts may be completely removed by surgery. But this can only be done at a time when there is no infection. Ask your doctor for more information. Follow-up care Follow up with your healthcare provider, or as advised. If a gauze packing was inserted in your wound, it should be removed in 1 to 2 days. Check your wound every day for the signs listed below. When to seek medical advice Call your healthcare provider right away if any of these occur: Pus continues to come from the cyst for 5 days after the incision Increasing redness, local pain, or swelling Fever of 100.4 F (38.0 C) or higher for more than 2 days, or as directed by your healthcare provider [id number] [employer]. [address] [place] [address], [place] [id number]. All rights reserved. This information is not intended as a substitute for professional medical care. Always follow your healthcare professional's instructions. 10/25/2023 16:36:11 Pilonidal Cyst, Infected (Antibiotics) Pilonidal Cyst, Infected (Antibiotic Treatment) A pilonidal cyst is a swelling that starts under the skin on the sacrum near the tailbone. It may look like a small dimple. It can fill with skin oils, hair, and skin cells. It may stay small or grow larger. It may become infected with normal skin bacteria because it often has an opening to the surface. Causes The cause of pilonidal cysts has been debated since they were first recognized. A cyst may be present at and go unnoticed. Injury, rubbing, or skin irritation may also cause pilonidal cysts. It can also be caused by an ingrown hair. The cause is most likely a combination of these things. Because some injury or irritation can lead to pilonidal cysts, they can be more common in people who sit or drive a lot for work. Symptoms A pilonidal cyst may be small and painless. If it becomes inflamed or infected, you may have these symptoms: Swelling Irritation or redness Pain Drainage The cyst can swell and drain on its own. The swelling and drainage can come and go. Treatment A limited infection can be treated with antibiotics and home care. You have been given antibiotics to treat your infected pilonidal cyst. Home care The following guidelines will help you care for your wound at home: Sit in a tub filled with about 6 inches of hot water. Keep the water hot for 10 to 15 minutes. Don't squeeze the pilonidal cyst or stick a needle in it to drain it. This will make the infection worse, or spread it. Cover the cyst with a pad or something similar to keep it from becoming more irritated, damaged, and painful. Medicines Take acetaminophen or ibuprofen for pain, unless you were given a different pain medicine to use. Talk with your doctor before using these medicines if you have chronic liver or kidney disease, or have ever had a stomach ulcer or digestive bleeding. Also talk with your doctor if you are taking blood thinner medicines. Take the antibiotics that you were prescribed until they are all gone. To make sure the infection is cured, it is important to finish the antibiotics even if the wound looks better. Use antibiotic cream or ointment if your healthcare provider tells you to. Preventing future infections Once this infection has healed, follow these tips to lower the risk for another infection: Keep the area of the cyst clean by bathing or showering every day. Don't wear tight-fitting clothing. This will help lessen sweat and irritation of the skin. You may need surgery to completely remove the cyst if it keeps coming back. The surgery can only be done when the cyst is not infected. Ask your doctor for more information. Watch for signs of infection listed below so that treatment may be started early. Follow-up care Follow up with your healthcare provider, or as advised. Check your wound every day for the signs listed below. When to seek medical advice Call your healthcare provider right away if any of these occur: Pus coming from the cyst Increasing local pain, redness, or swelling Fever of 100.4 F (38.0 C) or higher for more than 2 days, or as directed by your healthcare provider [phone] [employer]. [address] [place] [address]. All rights reserved. This information is not intended as a substitute for professional medical care. Always follow your healthcare professional's instructions. Follow Up Care 10/25/2023 14:17:08 With:Go to emergency room if symptoms worsen Address:Unknown When:2-4 days With:Follow up with primary care provider Address:Unknown When:2-4 days With:PEDRO LONDON MD, Surgery Address: [address] [facility] [place], [place] [id number] [phone] When:3-7 days [facility] 10-25-2023 Note ORIGINAL EXAMINATION: CT OF THE ABDOMEN AND PELVIS WITH CONTRAST10/25/2023 3:55 pm TECHNIQUE: CT of the abdomen and pelvis was performed with the administration of intravenous contrast. Multiplanar reformatted images are provided for review. Automated exposure control, iterative reconstruction, and/or weight based adjustment of the mA/kV was utilized to reduce the radiation dose to as low as reasonably achievable. COMPARISON: None HISTORY: ORDERING SYSTEM PROVIDED HISTORY: Reason for Exam: pain, FINDINGS: Trace right pleural effusion. No significant left pleural effusion. The lung bases are clear. The heart is normal in size. The liver, right adrenal gland, and pancreas are within normal limits. Borderline enlarged spleen. There is a 1.1 cm left adrenal nodule that measures approximately 46 HU. The gallbladder is unremarkable. Symmetric nephrograms. No hydronephrosis. The ureters are normal in course and caliber. The urinary bladder appears unremarkable. The large and small bowel demonstrate no obstruction. The appendix is normal. Fatty infiltration noted in the proximal colon and distal portions of the small bowel, findings may be seen with chronic inflammatory changes. No free intraperitoneal fluid or gas is identified. The aorta is normal in caliber. No abdominopelvic lymphadenopathy. There is no acute fracture or aggressive osseous lesion. Tiny fat containing umbilical hernia. There is a 1.5 cm nodular density measuring 17 HU mass in the superior gluteal crease eccentric to the left may represent an epidermoid inclusion cyst, there is mild subcutaneous fat stranding seen surrounding this nodule. IMPRESSION: No acute abdominopelvic process. Indeterminate 1.1 cm left adrenal nodule. Consider 12 month follow-up adrenal CT protocol for further evaluation. 1.5 cm nodular density in the superior gluteal crease eccentric to the left with mild surrounding soft tissue stranding. These findings may represent an epidermoid inclusion cyst. A superimposed infectious process cannot be excluded given the adjacent mild fat stranding, suggest to correlate with physical exam. Trace right pleural effusion. Preliminary Report was Dictated by a Resident I have personally reviewed all of the images of this examination and agree with the resident findings and interpretation. Interpreted by: Joseph Goel MD Preliminary Report By: Caitlin Jarquin Electronically signed By Joseph Goel MD Dictated Date: 10/25/2023 4:00:31 PM Prelim Date: 10/25/2023 4:13:51 PM Sign Date: 10/25/2023 8:40:31 PM Ordering Provider: [facility] 01-14-2023 Hospital Discharge instructions Patient Education 01/14/2023 12:46:05 Chest Wall Pain, Costochondritis Chest Wall Pain: Costochondritis The chest pain that you have had today is caused by costochondritis. This condition is caused by an inflammation of the cartilage joining your ribs to your breastbone. It is not caused by heart or lung problems. Your healthcare team has made sure that the chest pain you feel is not from a life threatening cause of chest pain such as heart attack, collapsed lung, blood clot in the lung, tear in the aorta, or esophageal rupture. The inflammation may have been brought on by a blow to the chest, lifting heavy objects, intense exercise, or an illness that made you cough and sneeze a lot. It often occurs during times of emotional stress. It can be painful, but it is not dangerous. It usually goes away in 1 to 2 weeks. But it may happen again. Rarely, a more serious condition may cause symptoms similar to costochondritis. That s why it s important to watch for the warning signs listed below. Home care Follow these guidelines when caring for yourself at home: If you feel that emotional stress is a cause of your condition, try to figure out the sources of that stress. It may not be obvious. Learn ways to deal with the stress in your life. This can include regular exercise, muscle relaxation, meditation, or simply taking time out for yourself. You may use acetaminophen, ibuprofen, or naproxen to control pain, unless another pain medicine was prescribed. If you have liver or kidney disease or ever had a stomach ulcer, talk with your healthcare provider before using these medicines. You can also help ease pain by using a hot, wet compress or heating pad. Use this with or without a medicated skin cream that helps relieves pain. Do stretching exercise as advised by your provider. Take any prescribed medicines as directed. Follow-up care Follow up with your healthcare provider, or as advised, if you do not start to get better in the next 2 days. When to seek medical advice Call your healthcare provider right away if any of these occur: A change in the type of pain. Call if it feels different, becomes more serious, lasts longer, or spreads into your shoulder, arm, neck, jaw, or back. Shortness of breath or pain gets worse when you breathe Weakness, dizziness, or fainting Cough with dark-colored sputum (phlegm) or blood Abdominal pain Dark red or black stools Fever of 100.4 F (38 C) or higher, or as directed by your healthcare provider [id number] [employer]. [address] [place] [address], [place] [address]. All rights reserved. This information is not intended as a substitute for professional medical care. Always follow your healthcare professional's instructions. 01/14/2023 12:46:02 Chest Pain, Uncertain Cause Uncertain Causes of Chest Pain Chest pain can happen for a number of reasons. Sometimes the cause can't be determined. If your condition does not seem serious, and your pain does not appear to be coming from your heart, your healthcare provider may recommend watching it closely. Sometimes the signs of a serious problem take more time to appear. Many problems not related to your heart can cause chest pain. These include: Musculoskeletal. Costochondritis is an inflammation of the tissues around the ribs that can occur from trauma or overuse injuries, or a strain of the muscles of the chest wall Respiratory. Pneumonia, collapsed lung (pneumothorax), or inflammation of the lining of the chest and lungs (pleurisy) Gastrointestinal. Esophageal reflux, heartburn, ulcers, or gallbladder disease Anxiety and panic disorders Nerve compression and inflammation Rare miscellaneous problems such as aortic aneurysm (a swelling of the large artery coming out of the heart) or pulmonary embolism (a blood clot in the lungs) Home care After your visit, follow these recommendations: Rest today and avoid strenuous activity. Take any prescribed medicine as directed. Be aware of any recurrent chest pain and notice any changes Follow-up care Follow up with your healthcare provider if you do not start to feel better within 24 hours, or as advised. Call 911 Call 911 if any of these occur: A change in the type of pain: if it feels different, becomes more severe, lasts longer, or begins to spread into your shoulder, arm, neck, jaw or back Shortness of breath or increased pain with breathing Weakness, dizziness, or fainting Rapid heart beat Crushing sensation in your chest When to seek medical advice Call your healthcare provider right away if any of the following occur: Cough with dark colored sputum (phlegm) or blood Fever of 100.4 F (38 C) or higher, or as directed by your healthcare provider Swelling, pain or redness in one leg [id number] [employer]. [address] [place] [address], [place] [address]. All rights reserved. This information is not intended as a substitute for professional medical care. Always follow your healthcare professional's instructions. Follow Up Care 01/14/2023 10:49:19 With:BRIDGETTE RENNER DO Address: [address] [place] [address]- [phone] When:2-4 days With:Call SANDRO New Pt. Refferral [phone] Address:Unknown When:2-4 days With:Go to emergency room if symptoms worsen Address:Unknown When:2-4 days [facility] 01-14-2023 Emergency department Discharge summary Discharge Instructions Thank you for allowing [facility] to assist you with your healthcare needs. The following is important discharge information regarding your hospital visit. Diagnosis from Today's Visit Chest wall pain Rib/trunk pain-swelling What to Do Next Instructions from Your Care Team No qualifying data available. Post Acute Orders No qualifying data available. You Need to Schedule the Following Appointments Follow Up with BRIDGETTE RENNER DO When Within 2-4 days Where: [address] [facility] [place], [place] [id number]- [phone] Follow Up with Call SANDRO Almanzar Pt. Refferral [phone] When Within 2-4 days Follow Up with Go to emergency room if symptoms worsen When Within 2-4 days Allergies NKA Medications Please ask your primary doctor or pharmacist before taking any other medication not listed, including over the counter drugs, herbal medications, vitamins and or supplements as they may interact with your home medications. What How Much When Instructions Last Dose New lidocaine topical (lidocaine 5% topical patch) 1 patch(es) Transdermal Every day Printed Prescription New naproxen (naproxen 500 mg oral tablet) 1 tab(s) by mouth Two (2) times a day Printed Prescription Please take this list to your next doctor s visit. Bring all medications you take, including over the counter medications, herbals and other supplements with you to your doctor s visit. Patients and families are reminded to discard old lists and to update any records with all medication providers or retail pharmacies. Medication Leaflets lidocaine topical (LYE palmer goldberg TOP i candice) AneCream, Bactine, Glydo, Lidoderm, LidoRx, Medi-Quik [place], RadiaGuard, RectiCare, Regenecare COLON [place], Solarcaine Cool Aloe What is the most important information I should know about lidocaine topical? An overdose of numbing medicine can cause fatal side effects if too much of the medicine is absorbed through your skin. Do not use large amounts of lidocaine topical, or cover treated skin areas with a bandage or plastic wrap without medical advice. Keep both used and unused lidocaine skin patches out of the reach of children or pets. The amount of lidocaine in the skin patches could be harmful to a child or pet who accidentally sucks on or swallows the patch. What is lidocaine topical? Lidocaine is a local anesthetic (numbing medication). There are many brands and forms of lidocaine available. Not all brands are listed on this leaflet. Lidocaine topical (for use on the skin) is used to reduce pain or discomfort caused by skin irritations such as sunburn, insect bites, poison annmarie, poison oak, poison sumac, and minor cuts, scratches, or zaragoza. Lidocaine topical is also used to treat rectal discomfort caused by hemorrhoids. Lidocaine intradermal device can be used in minor medical procedures such as venipuncture or peripheral intravenous cannulation. Lidocaine topical may also be used for purposes not listed in this medication guide. What should I discuss with my healthcare provider before using lidocaine topical? You should not use lidocaine topical if you are allergic to any type of numbing medicine. Fatal overdoses have occurred when numbing medicines were used without the advice of a medical doctor (such as during a cosmetic procedure like laser hair removal). However, overdose has also occurred in women treated with a numbing medicine before having a mammography. Be aware that many cosmetic procedures are performed without a medical doctor present. Tell your doctor if you have ever had: a blood cell disorder called methemoglobinemia (in you or a family member); liver disease; or if you take a heart rhythm medicine. Tell your doctor if you are or . If you apply lidocaine topical to your chest, avoid areas that may come into contact with the baby's mouth. How should I use lidocaine topical? Use this medicine exactly as directed on the label, or as it has been prescribed by your doctor. Do not apply this medicine in larger amounts than recommended. Improper use of lidocaine topical may result in . Lidocaine topical comes in many different forms (gel, spray, cream, lotion, ointment, liquid, skin patch, and others). Do not take by mouth. Topical medicine is for use only on the skin. If this medicine gets in your eyes, nose, mouth, rectum, or vagina, rinse with water. Read and carefully follow any Instructions for Use provided with your medicine. Ask your doctor or pharmacist if you do not understand these instructions. Use the smallest amount of medicine needed to numb the skin or relieve pain. Your body may absorb too much of this medicine if you use too much, if you apply it over large skin areas, or if you apply heat, bandages, or plastic wrap to treated skin areas. Skin that is cut or irritated may also absorb more topical medication than healthy skin. Do not apply this medicine to swollen skin areas or deep puncture wounds. Avoid using the medicine on skin that is raw or blistered, such as a severe burn or abrasion. Do not cover treated skin unless your doctor has told you to. Lidocaine topical may be applied with your finger tips or a cotton swab. Lidocaine intradermal device is applied by a healthcare provider. Store at room temperature away from moisture and heat. Keep both used and unused lidocaine topical skin patches out of the reach of children or pets. The amount of lidocaine in the skin patches could be harmful to a child or pet who accidentally sucks on or swallows the patch. Seek emergency medical attention if this happens. What happens if I miss a dose? Since lidocaine topical is used when needed, you may not be on a dosing schedule. Skip any missed dose if it's almost time for your next dose. Do not use two doses at one time. What happens if I overdose? Seek emergency medical attention or call the Poison Help line at . An overdose of numbing medicine can cause fatal side effects if too much of the medicine is absorbed through your skin and into your blood. Overdose symptoms may include uneven heartbeats, seizure (convulsions), slowed breathing, coma, or respiratory failure (breathing stops). Lidocaine applied to the skin is not likely to cause an overdose unless you apply more than the recommended dose. What should I avoid while using lidocaine topical? Avoid touching the sticky side of a lidocaine skin patch while applying it. Avoid accidentally injuring treated skin areas while they are numb. Avoid coming into contact with very hot or very cold surfaces. What are the possible side effects of lidocaine topical? Get emergency medical help if you have signs of an allergic reaction: hives; difficulty breathing; swelling of your face, lips, tongue, or throat. Call your doctor at once if you have: severe headache or vomiting; severe burning, stinging, or irritation where the medicine was applied; swelling or redness; sudden dizziness or drowsiness after medicine is applied; confusion, problems with speech or vision, ringing in your ears; or unusual sensations of temperature. Common side effects include: mild irritation where the medication is applied; or numbness in places where the medicine is accidentally applied. This is not a complete list of side effects and others may occur. Call your doctor for medical advice about side effects. You may report side effects to FDA at 3-942-IMR-5382. What other drugs will affect lidocaine topical? Medicine used on the skin is not likely to be affected by other drugs you use. But many drugs can interact with each other. Tell each of your health care providers about all medicines you use, including prescription and ajyo-mku-danfxyp medicines, vitamins, and herbal products. Where can I get more information? Your pharmacist can provide more information about lidocaine topical. Remember, keep this and all other medicines out of the reach of children, never share your medicines with others, and use this medication only for the indication prescribed. Every effort has been made to ensure that the information provided by [employer]. ('[employer]') is accurate, up-to-date, and complete, but no guarantee is made to that effect. Drug information contained herein may be time sensitive. [employer] information has been compiled for use by healthcare practitioners and consumers in the [place] and therefore [employer] does not warrant that uses outside of the [place] are appropriate, unless specifically indicated otherwise. [employer]'s drug information does not endorse drugs, diagnose patients or recommend therapy. [employer] drug information is an informational resource designed to assist licensed healthcare practitioners in caring for their patients and/or to serve consumers viewing this service as a supplement to, and not a substitute for, the expertise, skill, knowledge and judgment of healthcare practitioners. The absence of a warning for a given drug or drug combination in no way should be construed to indicate that the drug or drug combination is safe, effective or appropriate for any given patient. [employer] does not assume any responsibility for any aspect of healthcare administered with the aid of information [employer] provides. The information contained herein is not intended to cover all possible uses, directions, precautions, warnings, drug interactions, allergic reactions, or adverse effects. If you have questions about the drugs you are taking, check with your doctor, nurse or pharmacist. Copyright 1778-4862 [employer]. Version: 12.07. Revision Date: 10/26/2022. naproxen (na PROX en) Aleve, Aleve Back and Muscle Pain, Aleve Easy Open Arthritis, Aleve Liquid Gels, Anaprox-DS, EC-Naprosyn, Naprelan, Naprosyn What is the most important information I should know about naproxen? Naproxen can increase your risk of fatal heart attack or stroke. Do not use this medicine just before or after heart bypass surgery (coronary artery bypass graft, or CABG). Naproxen may also cause stomach or intestinal bleeding, which can be fatal. What is naproxen? Naproxen is a nonsteroidal anti-inflammatory drug (NSAID). Naproxen is used to treat pain or inflammation caused by conditions such as arthritis, ankylosing spondylitis, tendinitis, bursitis, gout, or menstrual cramps. The delayed-release or extended-release tablets are slower-acting forms of naproxen that are used only for treating chronic conditions such as arthritis or ankylosing spondylitis. These forms of naproxen will not work fast enough to treat acute pain. Naproxen may also be used for purposes not listed in this medication guide. What should I discuss with my healthcare provider before taking naproxen? Naproxen can increase your risk of fatal heart attack or stroke, even if you don't have any risk factors. Do not use this medicine just before or after heart bypass surgery (coronary artery bypass graft, or CABG). Naproxen may also cause stomach or intestinal bleeding, which can be fatal. These conditions can occur without warning while you are using naproxen, especially in older adults. You should not use naproxen if you are allergic to it, or if you have ever had an asthma attack or severe allergic reaction after taking aspirin or an NSAID. Ask a doctor before giving naproxen to a child younger than 12 years old. Ask a doctor or pharmacist if this medicine is safe to use if you have: heart disease, high blood pressure, high cholesterol, diabetes, or if you smoke; a heart attack, stroke, or blood clot; stomach ulcers or bleeding; asthma; liver or kidney disease; fluid retention; or if you take aspirin to prevent heart attack or stroke. If you are , you should not take naproxen unless your doctor tells you to. Taking an NSAID during the last 20 weeks of can cause serious heart or kidney problems in the unborn baby and possible complications with your . It may not be safe to breastfeed while using this medicine. Ask your doctor about any risk. How should I take naproxen? Use exactly as directed on the label, or as prescribed by your doctor. Use the lowest dose that is effective in treating your condition. Shake the oral suspension (liquid) before you measure a dose. Measure a dose with the supplied measuring device (not a kitchen spoon). Take this medicine with food or milk if it upsets your stomach. Always follow directions on the medicine label about giving this medicine to a child. Naproxen doses are based on weight in children. Your child's dose needs may change if the child gains or loses weight. If you use naproxen long-term, you may need frequent medical tests. This medicine can affect the results of certain medical tests. Tell any doctor who treats you that you are using naproxen. Store at room temperature away from moisture, heat, and light. Keep the bottle tightly closed when not in use. What happens if I miss a dose? Since naproxen is used when needed, you may not be on a dosing schedule. Skip any missed dose if it's almost time for your next dose. Do not use two doses at one time. What happens if I overdose? Seek emergency medical attention or call the Poison Help line at . What should I avoid while taking naproxen? Avoid drinking alcohol. It may increase your risk of stomach bleeding. Avoid taking aspirin or other NSAIDs unless your doctor tells you to. Ask a doctor or pharmacist before using other medicines for pain, fever, swelling, or cold/flu symptoms. They may contain ingredients similar to naproxen (such as aspirin, ibuprofen, or ketoprofen). Ask your doctor before using an antacid, and use only the type your doctor recommends. Some antacids can make it harder for your body to absorb naproxen. What are the possible side effects of naproxen? Get emergency medical help if you have signs of an allergic reaction (runny or stuffy nose, wheezing or trouble breathing, hives, swelling in your face or throat) or a severe skin reaction (fever, sore throat, burning eyes, skin pain, red or purple skin rash with blistering and peeling). Stop using naproxen and seek medical treatment if you have a serious drug reaction that can affect many parts of your body. Symptoms may include skin rash, fever, swollen glands, muscle aches, severe weakness, unusual bruising, or yellowing of your skin or eyes. Get emergency medical help if you have signs of a heart attack or stroke: chest pain spreading to your jaw or shoulder, sudden numbness or weakness on one side of the body, slurred speech, leg swelling, feeling short of breath. Stop using naproxen and call your doctor at once if you have: shortness of breath (even with mild exertion); swelling or rapid weight gain; the first sign of any skin rash or blister, no matter how mild; signs of stomach bleeding--bloody or tarry stools, coughing up blood or vomit that looks like coffee grounds; liver problems--nausea, upper stomach pain, loss of appetite, dark urine, aminta-colored stools, jaundice (yellowing of the skin or eyes); kidney problems--little or no urination, painful urination, swelling in your feet or ankles; or low red blood cells (anemia)--pale skin, unusual tiredness, feeling light-headed or short of breath, cold hands and feet. Common side effects may include: headache; indigestion, heartburn, stomach pain; or flu symptoms; This is not a complete list of side effects and others may occur. Call your doctor for medical advice about side effects. You may report side effects to FDA at 8-820-BZE-7427. What other drugs will affect naproxen? Ask your doctor before using naproxen if you take an antidepressant. Taking certain antidepressants with an NSAID may cause you to bruise or bleed easily. Ask a doctor or pharmacist before using naproxen with any other medications, especially: other NSAIDs or salicylates (diflunisal, salsalate); antacids and sucralfate; cholestyramine; cyclosporine; digoxin; lithium; methotrexate; pemetrexed; probenecid; warfarin (Coumadin, Jantoven) or similar blood thinners; a diuretic or 'water pill'; or heart or blood pressure medication. This list is not complete. Other drugs may affect naproxen, including prescription and dovp-sbq-fhashud medicines, vitamins, and herbal products. Not all possible drug interactions are listed here. Where can I get more information? Your pharmacist can provide more information about naproxen. Remember, keep this and all other medicines out of the reach of children, never share your medicines with others, and use this medication only for the indication prescribed. Every effort has been made to ensure that the information provided by [employer]. ('[employer]') is accurate, up-to-date, and complete, but no guarantee is made to that effect. Drug information contained herein may be time sensitive. [employer] information has been compiled for use by healthcare practitioners and consumers in the [place] and therefore [employer] does not warrant that uses outside of the [place] are appropriate, unless specifically indicated otherwise. [employer] drug information does not endorse drugs, diagnose patients or recommend therapy. [employer] drug information is an informational resource designed to assist licensed healthcare practitioners in caring for their patients and/or to serve consumers viewing this service as a supplement to, and not a substitute for, the expertise, skill, knowledge and judgment of healthcare practitioners. The absence of a warning for a given drug or drug combination in no way should be construed to indicate that the drug or drug combination is safe, effective or appropriate for any given patient. [employer] does not assume any responsibility for any aspect of healthcare administered with the aid of information [employer] provides. The information contained herein is not intended to cover all possible uses, directions, precautions, warnings, drug interactions, allergic reactions, or adverse effects. If you have questions about the drugs you are taking, check with your doctor, nurse or pharmacist. Copyright 7700-7899 [employer]. Version: 22.. Revision Date: 09/08/2022. Education Materials Chest Wall Pain: Costochondritis The chest pain that you have had today is caused by costochondritis. This condition is caused by an inflammation of the cartilage joining your ribs to your breastbone. It is not caused by heart or lung problems. Your healthcare team has made sure that the chest pain you feel is not from a life threatening cause of chest pain such as heart attack, collapsed lung, blood clot in the lung, tear in the aorta, or esophageal rupture. The inflammation may have been brought on by a blow to the chest, lifting heavy objects, intense exercise, or an illness that made you cough and sneeze a lot. It often occurs during times of emotional stress. It can be painful, but it is not dangerous. It usually goes away in 1 to 2 weeks. But it may happen again. Rarely, a more serious condition may cause symptoms similar to costochondritis. That s why it s important to watch for the warning signs listed below. Home care Follow these guidelines when caring for yourself at home: If you feel that emotional stress is a cause of your condition, try to figure out the sources of that stress. It may not be obvious. Learn ways to deal with the stress in your life. This can include regular exercise, muscle relaxation, meditation, or simply taking time out for yourself. You may use acetaminophen, ibuprofen, or naproxen to control pain, unless another pain medicine was prescribed. If you have liver or kidney disease or ever had a stomach ulcer, talk with your healthcare provider before using these medicines. You can also help ease pain by using a hot, wet compress or heating pad. Use this with or without a medicated skin cream that helps relieves pain. Do stretching exercise as advised by your provider. Take any prescribed medicines as directed. Follow-up care Follow up with your healthcare provider, or as advised, if you do not start to get better in the next 2 days. When to seek medical advice Call your healthcare provider right away if any of these occur: A change in the type of pain. Call if it feels different, becomes more serious, lasts longer, or spreads into your shoulder, arm, neck, jaw, or back. Shortness of breath or pain gets worse when you breathe Weakness, dizziness, or fainting Cough with dark-colored sputum (phlegm) or blood Abdominal pain Dark red or black stools Fever of 100.4 F (38 C) or higher, or as directed by your healthcare provider 5221-0472 [employer]. [address] [place] [address], [place] [address]. All rights reserved. This information is not intended as a substitute for professional medical care. Always follow your healthcare professional's instructions. Uncertain Causes of Chest Pain Chest pain can happen for a number of reasons. Sometimes the cause can't be determined. If your condition does not seem serious, and your pain does not appear to be coming from your heart, your healthcare provider may recommend watching it closely. Sometimes the signs of a serious problem take more time to appear. Many problems not related to your heart can cause chest pain. These include: Musculoskeletal. Costochondritis is an inflammation of the tissues around the ribs that can occur from trauma or overuse injuries, or a strain of the muscles of the chest wall Respiratory. Pneumonia, collapsed lung (pneumothorax), or inflammation of the lining of the chest and lungs (pleurisy) Gastrointestinal. Esophageal reflux, heartburn, ulcers, or gallbladder disease Anxiety and panic disorders Nerve compression and inflammation Rare miscellaneous problems such as aortic aneurysm (a swelling of the large artery coming out of the heart) or pulmonary embolism (a blood clot in the lungs) Home care After your visit, follow these recommendations: Rest today and avoid strenuous activity. Take any prescribed medicine as directed. Be aware of any recurrent chest pain and notice any changes Follow-up care Follow up with your healthcare provider if you do not start to feel better within 24 hours, or as advised. Call 911 Call 911 if any of these occur: A change in the type of pain: if it feels different, becomes more severe, lasts longer, or begins to spread into your shoulder, arm, neck, jaw or back Shortness of breath or increased pain with breathing Weakness, dizziness, or fainting Rapid heart beat Crushing sensation in your chest When to seek medical advice Call your healthcare provider right away if any of the following occur: Cough with dark colored sputum (phlegm) or blood Fever of 100.4 F (38 C) or higher, or as directed by your healthcare provider Swelling, pain or redness in one leg 7971-6614 [employer]. [address] [place] [address]. All rights reserved. This information is not intended as a substitute for professional medical care. Always follow your healthcare professional's instructions. Additional Information VACCINATE! IT SAVES LIVES! Members of the community who have not yet received the COVID-19 vaccine and would like to receive it can visit one of [facility] vaccine clinics. There are many vaccine clinic locations within the [facility]. For locations and available times, please visit [email or web address] It is important to note that some COVID mobile vaccine clinics are held outdoors and may be canceled in rainy or stormy conditions. To learn more about pediatric vaccinations (ages 5-11), we invite you to visit the [facility] webpage. [email or web address] To learn more about the COVID-19 vaccine, we invite you to visit the CDC website for a list of frequently asked questions. https://www.cdc.gov/coronavirus/2 019-ncov/vaccines/faq.html [email or web address] Patient Portal Access Instructions: Stay connected with your healthcare team and access your personal medical information anytime with the [facility] Patient [facility]. If you would like a full copy of your medical records please contact the [facility] Medical Records Department Monday through Monday between 8a.m. and 4:30p.m. Please follow the directions below to access the portal: 1.Access the email account you provided upon registration to the [facility].2.Look for an invitation email from [facility].3.Open the email and access the invitation link: Accept Invitation to [facility].Fill in the required cantu to create your account. Sign into [email or web address] with your username and password that you created in the above steps to stay up to date. You can then view a summary of results, a summary of your visits, and the ability to download your summaries to your computer or send the information securely to a physician. Remember that your healthcare information is confidential, so carefully consider who you will allow to register on the [facility] Patient Portal for access to your information. You can also access the [facility] Patient Portal on the [employer]. Simply click on Health Records under Health Data and then click on the [employer] logo. HOW TO SAFELY DISPOSE OF PRESCRIPTION MEDICATIONS Please use one of the following methods to safely dispose of your unused medications. 1.Use a drug disposal kit: the drug disposal pouch allows you to safely discard your old and unused drugs. Ask your nurse to give you one when you are discharged.2.Visit a local take-back location: Many local pharmacies and police departments have programs that collect old and unwanted prescription drugs. Call your local pharmacy or go to http://[employer]/6B1Oq9t to find one close to you.3.Make use of household items: Use cat litter or old coffee grounds to dispose medications if other options are not available. Mix your drugs with these household products, seal them in an airtight container and throw it into the garbage. Call [facility]: [phone] to be sure your drugs can be disposed of in this way. Some medicines may require a different approach.4.Never flush your medications down the toilet. IF YOU HAVE BEEN PRESCRIBED AN OPIOIDS FOR PAIN If you have been prescribed an opioid (such as hydrocodone, oxycodone or morphine), it is critical to understand the possible side effects and risks of opioid pain medications. Even when taken as directed, opioids can have several side effects including: Tolerance, meaning you might need to take more of a medication for the same pain relief. Nausea, vomiting and/or constipation. Sleepiness, dizziness, dry mouth, confusion, depression or itching. Physical dependence, meaning you have withdrawal symptoms when a medication is stopped ? this can develop within a few days. KNOW YOUR RESPONSIBILITIES It is important to know exactly how much and how often to take the opioid pain medications you are prescribed. Never take opioids in higher amounts or more often than prescribed. Do not combine opioids with alcohol or other drugs that cause drowsiness, such as benzodiazepines, also known as benzos, including diazepam and alprazolam, muscle relaxants or sleep aids. Never sell or share prescription opioids. This is illegal. Store opioids in a secure place and out of reach of others (including children, family, friends and visitors). The last page(s) of this document has been signed and retained as a CHART COPY Signatures Patient Education Materials Chest Wall Pain, Costochondritis Chest Pain, Uncertain Cause Medication Leaflets lidocaine topical, naproxen My discharge plan and instructions have been reviewed and explained to me and I,NAVI BROWN understand my current condition and have read and understand these discharge instructions. I have received a written copy of the plan/instructions. If I have questions, I am aware that I should contact my doctor. Patient/Mfg Assoc Signature: Date/Time: Relationship to Patient: ____ Witness Name/Signature: Date/Time: [facility] 01-14-2023 Note ORIGINAL EXAMINATION: TWO XRAY VIEWS OF THE CHEST01/14/2023 11:56 am COMPARISON: None HISTORY: ORDERING SYSTEM PROVIDED HISTORY: Reason for Exam: Chest Pain FINDINGS: The heart is borderline in size but may be exaggerated by the technique. Lung volumes are low. Mild patchy bibasilar atelectasis noted. No pneumothorax or pleural effusion. No aggressive osseous lesions identified.Bony detail is not optimal. IMPRESSION: Low lung volumes with probable mild bibasilar atelectasis Interpreted by: Luis Wade MD Preliminary Report By: Luis Wade MD Electronically signed By Luis Wade MD Dictated Date: 01/14/2023 12:06:01 PM Prelim Date: 01/14/2023 12:07:30 PM Sign Date: 01/14/2023 12:07:30 PM Ordering Provider: CECILIA STREETER [facility] 01-14-2023 Note Sinus rhythm Electronic Signature: CECILIA STREETER MD 01/14/2023 11:43:36 [facility] 11-25-2022 Hospital Discharge instructions Patient Education 11/25/2022 16:41:49 Ingrown Toenail, Infected (Antibiotics, No Excision) Ingrown Toenail, Infected (Antibiotics, No Excision) An ingrown toenail occurs when the nail grows sideways into the skin alongside the nail. This can cause pain. It can also lead to an infection with redness, swelling, and sometimes drainage. The most common cause of an ingrown toenail is trimming your nails wrong. Most people trim the nails too close to the skin and try to round the nail too tightly around the shape of the toe. When you do this, the nail can grow into the skin of your toe. It is safer to trim the nail ending in a straight line rather than a curve. Other causes include injury or wearing shoes that are too short or tight. This can cause the same problem that happens when trimming your nails. Your genetics can also make this more likely to happen. The following are the most common symptoms of an ingrown toenail: Pain Redness Swelling Drainage If the infection is mild, you may be able to take care of it at home with the following measures: Frequent warm water soaks Keeping it clean Wearing loose, comfortable shoes or sandals Another method involves using a small piece of cotton or waxed dental floss to gently lift up the corner of the problem nail. Change the cotton or floss frequently, especially if it gets dirty. If your infection is mild, and the above methods aren t working, or if the infection gets worse, see your healthcare provider. Signs of worsening infection include: Swelling Redness Pus drainage In some cases, you may need antibiotics along with warm soaks. If after 2 to 3 days of antibiotics the toenail doesn't get better or gets worse, part of the nail may need to be removed to drain the infection. With treatment, it can take 1 to 2 weeks to clear up completely. Home care Wound care For the next 3 days, soak and clean your toe in warm water a few times a day. Twice a day for the first 3 days, clean and soak the toe as follows: 1. Soak your foot in a tub of warm water for 5 minutes. Or, hold your toe under a faucet of warm running water for 5 minute 2. Clean any remaining crust away with soap and water using a cotton swab. 3. Put a small amount of antibiotic ointment on the infected area. Change the dressing or bandage every time you soak or clean it, or whenever it becomes wet or dirty. If you were prescribed antibiotics, take them as directed until they are all gone. Wear comfortable shoes with a lot of toe room, or open-toe sandals, while your toe is healing. Medicines You can take umvd-lyj-tpndhen medicine for pain, unless you were given a different pain medicine to use. Note: Talk with your provider before using these medicines if you have chronic liver or kidney disease, ever had a stomach ulcer or GI (gastrointestinal) bleeding, or are taking blood thinner medicines. If you were given antibiotics, take them until they are used up or your provider tells you to stop, even if the wound looks better. This ensures that the infection clears up. Prevention To prevent ingrown toenails: Wear shoes that fit well. Avoid shoes that pinch the toes together. When you trim your toenails, do not cut them too short. Cut straight across at the top and don t round the edges. Don t use a sharp object to clean under your nail since this might cause an infection. If the toenail starts to grow into the skin again, put a small piece of waxed dental floss or cotton under that side of the nail to help it grow out straight. Follow-up care Follow up with your healthcare provider, or as advised. If the antibiotic doesn't work, or if the condition recurs, you may need a minor procedure to have part of the nail removed. When to seek medical advice Call your healthcare provider right away if any of the following occur: Increasing redness, pain, or swelling of the toe Red streaks in the skin leading away from the wound Pus or fluid drainage Fever of 100.4 F (38 C) or higher, or as directed by your provider 3097-7903 [employer]. [address] [place] [address]. All rights reserved. This information is not intended as a substitute for professional medical care. Always follow your healthcare professional's instructions. Follow Up Care 11/25/2022 16:10:50 With:Podiatry Address: When:2-4 days Comments:Keep your appointment with podiatry With:Follow up with primary care provider Address:Unknown When:2-4 days [facility] 11-25-2022 Emergency department Discharge summary Discharge Instructions Thank you for allowing [facility] to assist you with your healthcare needs. The following is important discharge information regarding your hospital visit. Diagnosis from Today's Visit Bilateral infection of subungual skin of toe of feet due to ingrown toenail Toe pain-swelling What to Do Next Instructions from Your Care Team Discharge Return to Work, School, or Sports (Return to Work, School, or Sports) - Ordered -- 11/26/22, May return to: work, 11/25/22 16:40:00 EDT Post Acute Orders No qualifying data available. You Need to Schedule the Following Appointments Follow Up with Podiatry When Within 2-4 days Why: Keep your appointment with podiatry Where: Follow Up with Follow up with primary care provider When Within 2-4 days Allergies NK[facility] Medications Please ask your primary doctor or pharmacist before taking any other medication not listed, including over the counter drugs, herbal medications, vitamins and or supplements as they may interact with your home medications. What How Much When Instructions Last Dose New cephalexin (cephalexin 500 mg oral capsule) 1 cap by mouth Every 12 hours Duration: 10 Days Printed Prescription New sulfamethoxazole-trimethoprim (Bactrim DS 800 mg-160 mg oral tablet) 1 tab(s) by mouth Two (2) times a day Duration: 10 Days Printed Prescription Please take this list to your next doctor s visit. Bring all medications you take, including over the counter medications, herbals and other supplements with you to your doctor s visit. Patients and families are reminded to discard old lists and to update any records with all medication providers or retail pharmacies. Education Materials Ingrown Toenail, Infected (Antibiotics, No Excision) An ingrown toenail occurs when the nail grows sideways into the skin alongside the nail. This can cause pain. It can also lead to an infection with redness, swelling, and sometimes drainage. The most common cause of an ingrown toenail is trimming your nails wrong. Most people trim the nails too close to the skin and try to round the nail too tightly around the shape of the toe. When you do this, the nail can grow into the skin of your toe. It is safer to trim the nail ending in a straight line rather than a curve. Other causes include injury or wearing shoes that are too short or tight. This can cause the same problem that happens when trimming your nails. Your genetics can also make this more likely to happen. The following are the most common symptoms of an ingrown toenail: Pain Redness Swelling Drainage If the infection is mild, you may be able to take care of it at home with the following measures: Frequent warm water soaks Keeping it clean Wearing loose, comfortable shoes or sandals Another method involves using a small piece of cotton or waxed dental floss to gently lift up the corner of the problem nail. Change the cotton or floss frequently, especially if it gets dirty. If your infection is mild, and the above methods aren t working, or if the infection gets worse, see your healthcare provider. Signs of worsening infection include: Swelling Redness Pus drainage In some cases, you may need antibiotics along with warm soaks. If after 2 to 3 days of antibiotics the toenail doesn't get better or gets worse, part of the nail may need to be removed to drain the infection. With treatment, it can take 1 to 2 weeks to clear up completely. Home care Wound care For the next 3 days, soak and clean your toe in warm water a few times a day. Twice a day for the first 3 days, clean and soak the toe as follows: 1. Soak your foot in a tub of warm water for 5 minutes. Or, hold your toe under a faucet of warm running water for 5 minute 2. Clean any remaining crust away with soap and water using a cotton swab. 3. Put a small amount of antibiotic ointment on the infected area. Change the dressing or bandage every time you soak or clean it, or whenever it becomes wet or dirty. If you were prescribed antibiotics, take them as directed until they are all gone. Wear comfortable shoes with a lot of toe room, or open-toe sandals, while your toe is healing. Medicines You can take yfbb-cqz-lgetuhr medicine for pain, unless you were given a different pain medicine to use. Note: Talk with your provider before using these medicines if you have chronic liver or kidney disease, ever had a stomach ulcer or GI (gastrointestinal) bleeding, or are taking blood thinner medicines. If you were given antibiotics, take them until they are used up or your provider tells you to stop, even if the wound looks better. This ensures that the infection clears up. Prevention To prevent ingrown toenails: Wear shoes that fit well. Avoid shoes that pinch the toes together. When you trim your toenails, do not cut them too short. Cut straight across at the top and don t round the edges. Don t use a sharp object to clean under your nail since this might cause an infection. If the toenail starts to grow into the skin again, put a small piece of waxed dental floss or cotton under that side of the nail to help it grow out straight. Follow-up care Follow up with your healthcare provider, or as advised. If the antibiotic doesn't work, or if the condition recurs, you may need a minor procedure to have part of the nail removed. When to seek medical advice Call your healthcare provider right away if any of the following occur: Increasing redness, pain, or swelling of the toe Red streaks in the skin leading away from the wound Pus or fluid drainage Fever of 100.4 F (38 C) or higher, or as directed by your provider 5005-1916 [employer]. [address] [place] [address], [place] [id number]. All rights reserved. This information is not intended as a substitute for professional medical care. Always follow your healthcare professional's instructions. Additional Information VACCINATE! IT SAVES LIVES! Members of the community who have not yet received the COVID-19 vaccine and would like to receive it can visit one of [facility] vaccine clinics. There are many vaccine clinic locations within the [facility]. For locations and available times, please visit [email or web address] [email or web address] It is important to note that some COVID mobile vaccine clinics are held outdoors and may be canceled in rainy or stormy conditions. To learn more about pediatric vaccinations (ages 5-11), we invite you to visit the [facility] webpage. [email or web address]/pa [email or web address]-Cdmyb-Ftybhzuotke-Freque utxn-Jvbfr-Odjoyiplc.html To learn more about the COVID-19 vaccine, we invite you to visit the CDC website for a list of frequently asked questions. https://www.cdc.gov/coronavirus/2 019-ncov/vaccines/faq.html [facility] Patient Portal Access Instructions: Stay connected with your healthcare team and access your personal medical information anytime with the [facility] Patient Portal. If you would like a full copy of your medical records please contact the [facility] Medical Records Department Monday through Monday between 8a.m. and 4:30p.m. Please follow the directions below to access the portal: 1.Access the email account you provided upon registration to the hospital.2.Look for an invitation email from [facility].3.Open the email and access the invitation link: Accept Invitation to [facility].Fill in the required cantu to create your account. Sign into [email or web address] with your username and password that you created in the above steps to stay up to date. You can then view a summary of results, a summary of your visits, and the ability to download your summaries to your computer or send the information securely to a physician. Remember that your healthcare information is confidential, so carefully consider who you will allow to register on the [facility] Patient Portal for access to your information. You can also access the [facility] Patient Portal on the [employer]. Simply click on Health Records under Health Data and then click on the [employer] logo. HOW TO SAFELY DISPOSE OF PRESCRIPTION MEDICATIONS Please use one of the following methods to safely dispose of your unused medications. 1.Use a drug disposal kit: the drug disposal pouch allows you to safely discard your old and unused drugs. Ask your nurse to give you one when you are discharged.2.Visit a local take-back location: Many local pharmacies and police departments have programs that collect old and unwanted prescription drugs. Call your local pharmacy or go to http://[employer]/1V9Yc4f to find one close to you.3.Make use of household items: Use cat litter or old coffee grounds to dispose medications if other options are not available. Mix your drugs with these household products, seal them in an airtight container and throw it into the garbage. Call [facility]: [phone] to be sure your drugs can be disposed of in this way. Some medicines may require a different approach.4.Never flush your medications down the toilet. IF YOU HAVE BEEN PRESCRIBED AN OPIOIDS FOR PAIN If you have been prescribed an opioid (such as hydrocodone, oxycodone or morphine), it is critical to understand the possible side effects and risks of opioid pain medications. Even when taken as directed, opioids can have several side effects including: Tolerance, meaning you might need to take more of a medication for the same pain relief. Nausea, vomiting and/or constipation. Sleepiness, dizziness, dry mouth, confusion, depression or itching. Physical dependence, meaning you have withdrawal symptoms when a medication is stopped ? this can develop within a few days. KNOW YOUR RESPONSIBILITIES It is important to know exactly how much and how often to take the opioid pain medications you are prescribed. Never take opioids in higher amounts or more often than prescribed. Do not combine opioids with alcohol or other drugs that cause drowsiness, such as benzodiazepines, also known as benzos, including diazepam and alprazolam, muscle relaxants or sleep aids. Never sell or share prescription opioids. This is illegal. Store opioids in a secure place and out of reach of others (including children, family, friends and visitors). The last page(s) of this document has been signed and retained as a CHART COPY Signatures Patient Education Materials Ingrown Toenail, Infected (Antibiotics, No Excision) Medication Leaflets My discharge plan and instructions have been reviewed and explained to me and I,NAVI BROWN understand my current condition and have read and understand these discharge instructions. I have received a written copy of the plan/instructions. If I have questions, I am aware that I should contact my doctor. Patient/Mfg Assoc Signature: Date/Time: Relationship to Patient: ____ Witness Name/Signature: Date/Time: [facility] 02-23-2022 Discharge summary Note Date/Time February 23, 2022 3:05pm [facility] Medical Records Department [address] [place] [address] Emergency Department Summary 02/23/22 MR#: [id number] Acct: [id number] Name: NAVI BROWN BRYAN Rep #:[id number] : 2000 21 From: Gian Renae PCP: Care Physician,No Primary Status :REG ER Location: ED HPI History of Present Illness Chief Complaint: General Illness Informant: patient Onset/Context/Timing Onset: Weeks (2) Context: Gradual Onset Timing: Continuous Quality: Off balance Location: Generalized Worsened by: Nothing Relieved by: Nothing Narrative Narrative: Patient presents with shortness of breath and dizziness that has been constant for the past 2 weeks. Patient was seen here 1 week ago and had lab work and x-rays done at that time. Patient had IV fluids and was feeling somewhat better. Patient states his symptoms began after he was discharged. Patient states they have been constant. Patient states he feels off balance like he just got off ofa roller coaster. Patient states his symptoms are generalized. Patient states nothing makes it worse and nothing makes it better. Patient admits to some subjective fevers and chills. Patient also admits to some blurred vision. Patient admits to some tinnitus. Patient denies any hearing loss however. Patient admits to some shortness of breath and cough with some sputum production. PFSH PFSH Home Medications ondansetron 4 mg disintegrating tablet 4 mg PO Q8H PRN PRN Nausea #10 tabs 02/15/22 [Rx Last Taken Unknown] diazepam 10 mg tablet (Valium) 10 mg PO TID PRN dizziness or vertigo #14 tabs 02/23/22 [Rx Last Taken Unknown] promethazine 25 mg tablet 25 mg PO Q6H PRN PRN Nausea #10 TABLETS 02/23/22 [Rx Last Taken Unknown] Allergy/AdvReac Type Severity Reaction Status Date / Time No Known Allergies Allergy Verified 02/23/22 12:03 Social History Smoking Status: Never smoker ROS ROS ED Constitutional Constitutional ED: Reports chills, fever(s) and subjective Eyes Eyes: Reports blurry vision; Denies diplopia ENT ENT ED: Denies ear pain, rhinorrhea or sore throat Cardiovascular Cardiovascular: Denies chest pain or palpitations Respiratory/Chest Respiratory/Chest: Reports cough, dyspnea and sputum Gastrointestinal Gastrointestinal: Denies nausea or vomiting Genitourinary Genitourinary ED: Denies dysuria or hematuria Musculoskeletal Musculoskeletal: Reports back pain and neck pain Integumentary Denies abscess or rash Neurologic Neurologic: Reports headache(s); Denies weakness Allergic/Immunologic Allergic/Immunologic ED: Denies mouth swelling or urticaria EXAM Physical Exam Const Vital Signs: 02/23/22 12:01 02/23/22 14:08 Temperature 98 F Temperature Source Temporal Pulse Rate 89 Respiratory Rate 16 Respiratory Pattern Normal Blood Pressure 132/89 H Blood Pressure Mean 103 Pulse Ox 99 Oxygen Delivery Method Room Air Positive well nourished and well developed General Appearance ED: well developed HEENT Reports moist mucous membranes Neck supple and no JVD Resp normal respiratory effort and clear to auscultation bilaterally Cardio regular rate, regular rhythm and no murmurs GI normal to inspection, nondistended, normoactive bowel sounds and non-tender Palpation: soft Extremity normal to inspection General Extremety ED: Negative for edema or tenderness General Extremity: Negative for edema Neuro oriented x3, CN's II-XII intact bilaterally and no sensory deficits noted Sensorium / Orientation: alert Motor Exam: strength 5/5 throughout Psych mental status grossly normal Skin no rashes or lesions noted MDM MDM MDM Narrative Medical decision making narrative: Patient was given IV fluids. Patient was given a dose of oral Valium here. Differential diagnosis includes labyrinthitis due to viral upper respiratory infection, viral illness, vertigo, cerebellar infarct or bleed, anemia, and pneumonia. CBC was obtained and was reviewed. This was within normal limits. Comprehensive metabolic profile was obtained and was reviewed. This was all within normal limits. CT scan of the brain was obtained. There is no acute intracranial abnormality. This was interpreted by the radiologist. This was independently reviewed by myself as well. Patient was still having some vertigotype symptoms. Patient was given a dose of meclizine here. Patient was allowedto rest. Patient was having difficulty walking to the bathroom and needed help from his to keep him steady. Patient states that whenever he closes his eyes he still feels like the room is spinning. Patient was given a repeat dose of meclizine here. Patient still feels dizzy but he feels like he is starting to get better. Patient feels unsure if he is able to go home and ambulate without difficulty. states patient has fallen multiple times over the lastweek and states he is still felt unsteady on his feet. Because of this, I will talk to the hospitalist for observation admission for intractable vertigo. Spouse present and evaluated the patient. Hospitalist states patient is going to go home with Valium and Phenergan. Patient was given prescriptions for thesemedications. Patient was also given a note for work for today, tomorrow, and Monday. Patient was instructed to drink plenty of fluids. Patient was instructed return if worse in any way. Patient understood and was agreeable with the plan. All questions were answered. Lab Data Attestation: I reviewed the patient's lab results. Labs: Laboratory Results - last 24 hr 02/23/22 02/23/22 13:35 13:35 WBC 6.5 RBC 5.42 Hgb 15.4 Hct 45.9 MCV 84.7 MCH 28.4 MCHC 33.6 RDW Std Deviation 39.2 RDW Coeff of Greer 12.7 Plt Count 318 MPV 9.5 Immature Gran % (Auto) 0.300 Neut % (Auto) 64.2 Lymph % (Auto) 25.0 [place] % (Auto) 7.7 Eos % (Auto) 2.3 Baso % (Auto) 0.5 Absolute Neuts (auto) 4.2 Absolute Lymphs (auto) 1.62 Nucleated RBC % 0 Sodium 138 Potassium 4.1 Chloride 103 Carbon Dioxide 28.0 Anion Gap 7 BUN 10 Creatinine 0.86 Estim Creat Clear Calc 159.67 Est GFR (MDRD) Af Amer 141 Est GFR (MDRD) Non-Af 117 BUN/Creatinine Ratio 11.6 Glucose 92 Calcium 9.4 Total Bilirubin 0.70 AST 15 ALT 36 Alkaline Phosphatase 64 Total Protein 7.7 Albumin 4.1 Globulin 3.6 Albumin/Globulin Ratio 1.1 Radiography Diagnostic Testing: Clinical Impression(s) from Imaging Studies Brain CT 02/23/22 14:05 IMPRESSION: Normal unenhanced CT scan of the brain. Mild degree of mucosal thickening along the posterior aspect of the ethmoid sinuses bilaterally. Electronically Signed: Bernard Echevarria MD at 14:44 EST , Chest X-Ray 02/23/22 15:05 IMPRESSION: Normal x-ray examination of the chest. Electronically Signed: Bernard Echevarria MD at 15:24 EST , Discharge Plan Triage Chief Complaint: General Illness ED Provider: Gian Echavarria Dx/Rx/DC Orders Clinical Impression: Vertigo, Elevated blood pressure reading Instructions: ED Vertigo, Unspecified Prescriptions: New diazepam [Valium] 10 mg tablet 10 mg PO TID PRN (Reason: dizziness or vertigo) Qty: 14 0RF promethazine [promethazine] 25 mg tablet 25 mg PO Q6H PRN PRN (Reason: Nausea) Qty: 10 0RF No Action ondansetron [ondansetron] 4 MG tablet 4 mg PO Q8H PRN PRN (Reason: Nausea) Qty: 10 0RF Stand Alone Forms: ED Work / School Excuse Primary Care Provider: Care Physician,No Primary Referrals: Care Physician,No Primary [Primary Care Provider] - Disposition Disposition: Home, Self Care What to do if you have Problems For any increased pain, shortness of breath, bleeding, nausea or vomiting, chestpain, or any unexpected problems, contact your Primary Care Provider. Call [facility] ([phone]) or report to the closest Emergency Room. Call 911 if necessary. 02/23/22 1734 <Electronically signed by Gian Echavarria DO> Cosigner Signature (if applicable): CC: No Primary Care Physician ~ Signed [facility] Work Phone: Evaluation + Plan note No data available for this section [facility] Evaluation noteNo assessment information available [facility] Work Phone: Evaluation note* Diagnosis Onset Date Resolution Status Admit Date Physical exam, pre-employment acute September 26, 2024 2:54pm [facility] Work Phone: Reason for referral (narrative)No reason for referral [facility]: Chief Complaint and Reason for Visit Chief Complaint GENERAL ILLNESS Chief Complaint GENERAL ILLNESS GENERAL ILLNESS Chief Complaint Admit Date PE/NON DOT PHYSICAL/[facility] September 26, 2024 2:54pm PE/NON DOT DRUG/[facility] Sep 2:55pm Reason for Visit Admit Date Physical exam, pre-employment September 2:54pm Advance Directives No Advanced Directives Records Found Advance Directive Response Recorded Date/ Time Living Will No February 15 5:42pm Power of Maintenance Tech No February 15, 2022 5:42pm Advance Directive Response Recorded Date/ Time Living Will No February 23 2:08pm Power of Maintenance Tech No February 23, 2022 2:08pm Summary Purpose Family History No Family History Records Found Additional Source Comments Goals (unrecognized section and content) Goals may be documented in a n alternate sectionGoals may be documented in an alternate section No data available for this section No data available for this section No data available for this sectionGoals may be documented in an alternate sectionGoals may be documented in an alternate section Care Teams (unrecognized sec tion and content) Team Status: Active Member Role Status Dates Dr. Nicolasa Arteaga MD Family Provider Active No Primary Care Physician Primary Care Provider Active Team Status: Inactive Member Role Status Dates No Primary Care Physician Primary Care Provider Active Dr. Gian Echavarria DO Emergency Provider Active Team Status: Active Member Role/Relationship Status Dates Dr. Nicolasa Arteaga MD Family Provider Active No Primary Care Physician Primary Care Provider Active Team Status: Inactive Member Role/Relationship Status Dates No Primary Care Physician Primary Care Provider Active Start: September 26, 2024 End: September 26, 2024 No Primary Care Physician Referring Provider Active Start: September 26, 2024 End: September 26, 2024 HUONG Stewart Attending Provider Active Sta rt: September 26, 2024 End: September 26, 2024 Team Status: Active Member Role/Relationship Status Dates No Primary Care Physician Primary Care Provider Active Start: September 26, 2024 No Primary Care Physician Referring Provider Active Start: September 26, 2024 HUONG Stewart Attending Provider Active Sta rt: September 26, 2024 Team Status: Inactive Member Role/Relationship Status Dates No Primary Care Physician Primary Care Provider Active Start: September 26, 2024 End: September 26, 2024 No Primary Care Physician Referring Provider Active Start: September 26, 2024 End: September 26, 2024 HUONG Stewart Attending Provider Active Sta rt: September 26, 2024 End: September 26, 2024 (unrecognized sect ion and content) No Status Records FoundNo Status Records FoundNo Status Records Found INFORMATION SOURCE (unrecogn ized section and content) DATE CREATED AUTHOR 01/22/2023 [facility] ([place]) DATE CREATED AUTHOR AUTHOR'S ORGANIZ ATION 11/01/2023 [facility] DATE CREATED AUTHOR AUTHOR'S ORGANIZ ATION 10/11/2024 [facility] FOR RECORDS PERTAINING TO PATIENTS WHO ARE OR HAVE BEEN ENROLLED IN A CHEMICAL DEPENDENCY/SUBSTANCEABUSE PROGRAM, SOME INFORMATION MAY BE OMITTED. This clinical summary was aggregated from multiple sources. Caution should be exercised in using it in the provision of clinical care. This summary normalizes information from multiple sources, and as a consequence, information in this document may materially change the coding, format and clinical context of patient data. In addition, data may be omitted in some cases. CLINICAL DECISIONS SHOULD BE BASED ON THE PRIMARY CLINICAL RECORDS. [facility] [employer], [facility]. provides no warranty or guarantee of the accuracy or completeness of information in this document.
[2025-01-16 00:14] VITALS: BP 124/75; PULSE 60; RESP 16; TEMP 36.6; O2SAT 98
== END 2025-01-16 00:21 | disposition home or self-care (01) ==
PROVIDERS: Emergency Provider Emergency Medicine; Visit Provider Emergency Medicine
DX: S90.111A Contusion of right great toe without damage to nail, initial encounter (principal); R03.0 Elevated blood-pressure reading, without diagnosis of hypertension; W19.XXXA Unspecified fall, initial encounter
CPT/HCPCS: 73630; 99283